=== PATIENT | female | born 1965 | race Caucasian/White ===

== ENCOUNTER 2019-10-19 08:21 | Outpatient (CLI) | payer OTHER, SELFPAY ==
--- NOTE | ~2019-10-19 | MM_ITS ---
EXAMINATION: MM screening [facility] BI w dov HISTORY: Screening mammogram TECHNIQUE: Craniocaudal and mediolateral oblique 3-D tomosynthesis images were obtained and synthetic 2-D images were generated. CAD analysis was submitted and interpreted. COMPARISON: 02/05/2018, 12/31/2015, 12/24/1959 BREAST PARENCHYMAL COMPOSITION: There are scattered areas of fibroglandular density. FINDINGS: RIGHT BREAST: There is no evidence of suspicious mass, calcification, or architectural distortion to suggest malignancy. There has been no significant interval change. LEFT BREAST: There is possible architectural distortion in the middle third of the lower-outer breast 9 cm from the nipple. Stable intramammary lymph nodes are noted in the upper outer quadrant of the b reast. IMPRESSION: 1. Possible architectural distortion of the left breast. 2. Additional mammographic views and possible breast ultrasound are recommended. BI-RADS Category 0: Incomplete: Needs additional imaging evaluation. Reviewed, dictated and finalized at location A. IMPRESSION: 1. Possible architectural distortion of the left breast. 2. Additional mammographic views and possible breast ultrasound are recommended . BI-RADS Category 0: Incomplete: Needs additional imaging evaluation.
== END 2019-10-19 08:22 | disposition home or self-care (01) ==
LOC: ANHIMG 08:29
PROVIDERS: PCP Family Medicine; Visit Provider Physician Assistant
DX: Z12.31 Encounter for screening mammogram for malignant neoplasm of breast (principal); R92.8 Other abnormal and inconclusive findings on diagnostic imaging of breast
CPT/HCPCS: 77063; 77067

== ENCOUNTER 2019-11-14 13:23 | Outpatient (CLI) | payer OTHER, SELFPAY ==
--- NOTE | ~2019-11-14 | MMUS_ITS ---
EXAMINATION: MM diagnostic mammo unilat LT, US breast LT limited HISTORY: Follow-up left breast asymmetry TECHNIQUE: Additional 3-D tomosynthesis images of the left breast were performed and synthetic 2-D im ages were generated. CAD analysis was submitted and interpreted. High resolution left breast ultrasou nd was performed. COMPARISON: 10/19/2019 BREAST PARENCHYMAL COMPOSITION: Breast composed of scattered areas of fibroglandular density FINDINGS: MAMMOGRAPHIC FINDINGS: There are no suspicious masses, calcifications or architectural distortion in the left breast to sugg est malignancy. There are benign appearing intramammary lymph nodes in the upper outer quadrant. ULTRASOUND: Left breast ultrasound: At 1:00 in the subareolar location there is a 3 mm cyst. There are dilated ducts. No suspicious patti s to suggest malignancy. IMPRESSION: 1. No evidence for malignancy in the left breast. Benign findings. 2. Routine yearly screening mammogram and regular clinical breast examination are recommended. BI-RADS Category 2: Benign finding(s). Reviewed, dictated and finalized at location A. IMPRESSION: 1. No evidence for malignancy in the left breast. Benign findings. 2. Routine yearly screening mammogram and regular clinical breast examination a re recommended. BI-RADS Category 2: Benign finding(s).
== END 2019-11-14 13:24 | disposition home or self-care (01) ==
PROVIDERS: PCP Family Medicine; Visit Provider Family Medicine
DX: R92.8 Other abnormal and inconclusive findings on diagnostic imaging of breast (principal)
CPT/HCPCS: 76642; 77065

== ENCOUNTER 2021-04-15 16:27 | Outpatient (CLI) | payer OTHER, SELFPAY ==
--- NOTE | ~2021-04-15 | MM_ITS ---
EXAMINATION: MM screening [facility] BI w dov HISTORY: Screening mammogram TECHNIQUE: Craniocaudal and mediolateral oblique 3-D tomosynthesis images were obtained and synthetic 2-D images were generated. CAD analysis was submitted and interpreted. COMPARISON: 11/14/2019, 10/19/2019, 02/05/2018 BREAST PARENCHYMAL COMPOSITION: There are scattered areas of fibroglandular density. FINDINGS: RIGHT BREAST: There is no evidence of suspicious mass, calcification, or architectural distortion to suggest malignancy. There has been no significant interval change. LEFT BREAST: There is architectural distortion in the middle third of the lower-outer breast 9 cm fro m the nipple. IMPRESSION: 1. Left breast architectural distortion. 2. Additional mammographic views and possible breast ultrasound are recommended. BI-RADS Category 0: Incomplete: Needs additional imaging evaluation. Reviewed, dictated and finalized at location A. OND SANDER IMPRESSION: 1. Left breast architectural distortion. 2. Additional mammographic views and possible breast ultrasound are recommended . BI-RADS Category 0: Incomplete: Needs additional imaging evaluation.
== END 2021-04-15 16:28 | disposition home or self-care (01) ==
LOC: ANHIMG 16:29
PROVIDERS: PCP Family Medicine; Visit Provider Physician Assistant
DX: Z12.31 Encounter for screening mammogram for malignant neoplasm of breast (principal); R92.8 Other abnormal and inconclusive findings on diagnostic imaging of breast
CPT/HCPCS: 77063; 77067

== ENCOUNTER 2021-05-02 11:30 | Outpatient (CLI) | payer OTHER, SELFPAY ==
--- NOTE | ~2021-05-02 | MMUS_ITS ---
EXAMINATION: MM diagnostic k[facility] LT w dov, US breast LT limited HISTORY: Follow-up left breast asymmetry TECHNIQUE: Additional 3-D tomosynthesis images of left were performed and synthetic 2-D images were g enerated. CAD analysis was submitted and interpreted. High resolution Limited left breast ultrasound was performed. COMPARISON: Comparison to multiple prior studies sequentially, with oldest reviewed study dated 12/23. BREAST PARENCHYMAL COMPOSITION: BREAST PARENCHYMAL COMPOSITION: There are scattered areas of fibroglandular density. FINDINGS: MAMMOGRAPHIC FINDINGS: The area of asymmetry/architectural distortion is less apparent with spot compression and mediolatera l views, compatible with superimposed fibroglandular content. No discrete mass or abnormal cluster of calcifications. ULTRASOUND: Limited left breast ultrasound: Normal heterogeneous echotexture without focal solid or cystic mass. IMPRESSION: 1. No evidence for malignancy in the left breast. 2. Routine yearly screening mammogram and regular clinical breast examination are recommended. BI-RADS Category 2: Benign finding(s). Reviewed, dictated and finalized at location A. GN COORDINATOR IMPRESSION: 1. No evidence for malignancy in the left breast. 2. Routine yearly screening mammogram and regular clinical breast examination a re recommended. BI-RADS Category 2: Benign finding(s).
== END 2021-05-02 11:31 | disposition home or self-care (01) ==
LOC: ANHIMG 11:32
PROVIDERS: PCP Family Medicine; Visit Provider Family Medicine
DX: R92.8 Other abnormal and inconclusive findings on diagnostic imaging of breast (principal)
CPT/HCPCS: 76642; 77061; 77065; G0279

== ENCOUNTER 2021-05-12 00:04 | Day surgery (SDC) | payer OTHER, SELFPAY ==
[2021-05-02 13:22] VITALS: BMI 49.3
[2021-05-12 09:14] VITALS: BP 142/77; PULSE 83; RESP 18; TEMP 36; O2SAT 100; BMI 53.3
--- NOTE | 2021-05-12 09:20 | WPDANESEPPF ---
Anes - Initial Pre Proc Eval Procedure: Operation Date: 05/12/21 10:00 Proposed Procedures p Screening Colonoscopy - Robbie Salas MD Date/Time: 05/12/21 09:20 Surgeon: Robbie Salas MD Pre Op Diagnosis: neoplasm screening Patient Data Age: 55 Gender: F Height: 1.68 m Weight: 149.9 kg Last Vital Signs Temp 36.0 C L 05/12/21 09:14 Pulse 83 05/12/21 09:14 Resp 18 05/12/21 09:14 BP 142/77 H 05/12/21 09:14 Pulse Ox 100 05/12/21 09:14 Allergies Allergy/AdvReac Type Severity Reaction Status Date / Time No Known Allergies Allergy Verified 05/12/21 09:13 Home Medications Medication Instructions Recorded Confirmed Type lisinopril 40 mg PO DAILY 05/02/21 05/12/21 History Patient hx anesthesia problems: none Family hx anesthesia problems: none Results Review: All pre-operative results and documents have been reviewed as part of the pre-operative evaluation. [facility] Past Medical History Medical History (Updated 05/12/21 @ 09:20 by Guero Cruz MD) HTN (hypertension) Morbid obesity Surgical History Surgical History (Updated 05/12/21 @ 09:21 by Guero Cruz MD) H/O colonoscopy History of appendectomy History of section Family History Family History (Updated 10/29/15 @ 10:40 by DOCTOR UNKNOWN) Mother Hypertension Family history of heart disease in male family member before age 55 Sibling Family history of malignant neoplasm of testis Other Cerebrovascular accident Social History Social History Smoking status: Never smoker Alcohol intake: current Drinks per week: 1 Substance use: never Substance use type: does not use Living arrangements: with family Spiritual care concerns: No Anes - Eval Final PreProcedure Day of Procedure 05/12/21 09:20 Patient weight: morbidly obese Heart: regular rate and rhythm Lungs: clear to auscultation Airway: Mallampati scale class II Neurological: alert and oriented Last oral intake: >/= 8 hours ASA classification: III Emergent: no Anesthetic plan: proceed Anesthesia type and monitoring: general GIVS and standard monitoring Results Review: All pre-operative results and documents have been reviewed as part of the pre-operative evaluation. Informed Consent: The patient's anesthetic plan and its attendant risks and benefits were discussed with the patient/family/POA. Questions were solicited and answers provided to the satisfaction of the patient/family/POA.
[2021-05-12] MEDS: LACTATED RINGERS 1,000 ML 150 ML IV CONT (09:23)
--- NOTE | 2021-05-12 09:27 | P.CONGI_ITS ---
Assessment and Plan Assessment and plan (1) Encounter for screening colonoscopy: Code(s): Z12.11 - Encounter for screening for malignant neoplasm of colon Status: Acute Assessment and Plan: Patient presents for screening colonoscopy. Appears be at average risk for colon polyps. Further recommendations will be given after endoscopy. (2) Morbid obesity: Code(s): E66.01 - Morbid (severe) obesity due to excess calories Status: Acute Assessment and Plan: Weight loss with dietary restriction increase activity are encouraged. GI Consult Note Consult date/time: 05/12/21 09:27 HPI: Marie Lyon is a 55 year old female Presents for screening colonoscopy. Patient's current weight appetite and bowel habits are normal. Sh e denies abdominal pain. She has had no bleeding. Family history is noncontributory. Review of Systems Review of Systems: All systems reviewed & are unremarkable except as noted in HPI and below PMFSH Past Medical History Medical History (Updated 05/12/21 @ 09:29 by Robbie Salas MD) HTN (hypertension) Morbid obesity Surgical History Surgical History (Updated 05/12/21 @ 09:21 by Guero Cruz MD) H/O colonoscopy History of appendectomy History of section Family History Family History (Updated 10/29/15 @ 10:40 by DOCTOR UNKNOWN) Mother Hypertension Family history of heart disease in male family member before age 55 Sibling Family history of malignant neoplasm of testis Other Cerebrovascular accident Social History Social History Smoking status: Never smoker Alcohol intake: current Drinks per week: 1 Substance use: never Substance use type: does not use Living arrangements: with family Spiritual care concerns: No Meds Home Medications and Allergies Home Medications Medication Instructions Recorded Confirmed Type lisinopril 40 mg PO DAILY 05/02/21 05/12/21 History Allergies Allergy/AdvReac Type Severity Reaction Status Date / Time No Known Allergies Allergy Verified 05/12/21 09:13 Vital Signs Vital Signs - 24 hr 05/12/21 09:14 Temperature 96.8 F L Pulse Rate 83 Respiratory Rate 18 Blood Pressure 142/77 H Pulse Oximetry 100 Exam Narrative: Physical exam reveals patient to be alert. Vital signs stable. HEENT exam is unremarkable. Patient is anicteric. Lungs are clear to auscultation and percussion. Heart is without murmur or extra sounds. Abdominal exam Is obese.bowel sounds are present soft nontender with no organomegaly. Digital external rectal exam is normal.
[2021-05-12 10:12] VITALS: BP 97/53; PULSE 76; RESP 23; O2SAT 100
[2021-05-12 10:22] VITALS: BP 120/56; PULSE 77; RESP 23; O2SAT 100
[2021-05-12 10:32] VITALS: BP 133/64; PULSE 71; RESP 17; O2SAT 100
== END 2021-05-12 10:43 | disposition home or self-care (01) ==
PROVIDERS: PCP Family Medicine; Visit Provider Internal Medicine Gastroenterology
PROC: 0DJD8ZZ Inspection of Lower Intestinal Tract, Via Natural or Artificial Opening Endoscopic (ICD-10-PCS; CPT 45378; principal; 2021-05-12 10:00)
DX: Z12.11 Encounter for screening for malignant neoplasm of colon (principal); K64.8 Other hemorrhoids; I10 Essential (primary) hypertension; E66.01 Morbid (severe) obesity due to excess calories; Z68.43 Body mass index [BMI] 50.0-59.9, adult
CPT/HCPCS: 45378; J2001; J2704; J7120

== ENCOUNTER 2022-03-30 16:04 | Inpatient (IN) | payer OTHER, SELFPAY ==
--- NOTE | ~2022-03-30 | US_ITS ---
EXAMINATION: US venous doppler [facility] DATE: 03/31/2022 11:53 INDICATION: Lower limb swelling and pain TECHNIQUE: Grayscale ultrasound images without and with compression and Doppler ultrasound images of the bilateral lower extremity veins were obtained. COMPARISON: None. FINDINGS: The visualized portions of right common femoral vein, profunda (deep) femoral vein, femoral vein, pop liteal vein, posterior tibial veins, peroneal veins and greater saphenous vein outflow are patent. The visualized portions of left common femoral vein, profunda femoral vein, femoral vein, popliteal v ein, posterior tibial veins, peroneal veins and greater saphenous vein outflow are patent. IMPRESSION: 1. No deep venous thrombosis in either lower limb. Reviewed, dictated and finalized at location L. ICAL PROJECT LEADER
--- NOTE | ~2022-03-30 | XR_ITS ---
Clinical Indication: Arrhythmia AP and lateral views of the chest: Comparison: None Findings: The lungs are clear, without evidence of focal consolidation or pleural effusion. Cardiome diastinal silhouette is within normal limits. Bones and soft tissues are unremarkable. Impression: Normal chest. Reviewed, dictated and finalized at [facility]. RIBUTION CENTER ASSISTANT Impression: Normal chest.
--- NOTE | 2022-03-30 16:08 | ECG_ITS ---
Measurements Intervals [place] Rate: 135 P: MS: 0 QRS: -25 QRSD: 94 T: 9 QT: 311 QTc: 466 Interpretive Statements ATRIAL FIBRILLATION WITH RAPID VENTRICULAR RESPONSE MODERATE VOLTAGE CRITERIA FOR LVH, CONSIDER NORMAL VARIANT [MEETS CRITERIA IN ONE OF: R(aVL), S(V1), R(V5), R(V5/V6)+S(V1)] POOR R-WAVE PROGRESSION INFERIOR MYOCARDIAL INFARCTION , PROBABLY OLD [40+ ms Q WAVE AND/OR ST/T ABNORMALITY IN II/aVF] NO PREVIOUS ECG AVAILABLE FOR COMPARISON Electronically Signed On 03-30-2022 17:21:59 DOUBLE CUT SAWYER by Andrea Love M.D.
[2022-03-30 16:09] VITALS: BP 135/94; PULSE 135; RESP 16; TEMP 36.4; O2SAT 100
[2022-03-30 16:33] LABS: Basophils Absolute Auto 0.1 K/mm3 (0.0-0.1); Basophils Percent Auto 0.6 % (0.2-1.2); Eosinophils Absolute Auto 0.1 K/mm3 (0-0.3); Eosinophils Percent Auto 0.6 % (0-4.4); Hematocrit 46.3 % (37.0-47.0); Hemoglobin 14.7 g/dL (12.0-15.0); Immature Granulocyte Absolute 0.04 K/mm3 (0.00-0.031); Immature Granulocyte Percent A 0.3 % (0-0.5); Lymphocytes Absolute Auto 2.99 K/mm3 (0.9-3.2); Lymphocytes Percent Auto 23.5 % (18.3-44.2); Mean Corpuscular HGB Conc 31.7 g/dl (32-36); Mean Corpuscular Hemoglobin 29.4 pg (26-34); Mean Corpuscular Volume 92.6 fl (80-100); Mean Platelet Volume 10.6 fl (7.4-10.4); Monocytes Absolute Auto 0.8 K/mm3 (0.1-0.6); Monocytes Percent Auto 6.6 % (2.6-8.5); Neutrophils Absolute Auto 8.7 K/mm3 (1.3-6.7); Neutrophils Percent Auto 68.4 % (45.5-73.1); Platelet Count Result 396 k/mm3 (150-375); Red Cell Distribution Width 13.8 % (11.5-14.5); White Blood Count 12.7 K/mm3 (4.5-10.0)
[2022-03-30 16:47] LABS: Alanine Aminotransferase 17 U/L (6-35); Albumin Level 4.8 g/dL (3.5-5.1); Alkaline Phosphatase 81 U/L (38-126); Anion Gap 10 mmol/L (8-16); Aspartate Amino Transferase 23 U/L (14-36); Bilirubin,Total 0.6 mg/dL (0.2-1.3); Blood Urea Nitrogen 22 mg/dL (7-17); Calcium 8.9 mg/dL (8.4-10.2); Carbon Dioxide 26 mmol/L (22-30); Chloride 101 mmol/L (98-107); Estimated CRCL calculation 103 ml/min; Estimated Glomerular Filt Rate > 60; Glucose 108 mg/dL (65-110); Potassium 4.1 mmol/L (3.4-5.0); Sodium 137 mmol/L (137-145)
--- NOTE | 2022-03-30 17:22 | ED.ARRPALP ---
HPI - Arrhythmia/Palpitations General Chief Complaint: Arrhythmia/Palpitations Stated Complaint: rapid heart rate Time Seen by Provider: 03/30/22 16:32 Source: patient, RN notes reviewed and old records reviewed Mode of arrival: ambulatory Limitations: no limitations History of Present Illness HPI narrative: This is a 56 year old female with history of hypertension who presents for evaluation of atrial fibrillation. Patient states she had URI symptoms in February and she had covid vaccination around [facility]. She takes her blood pressure daily and she has noticed that her monitor reports that she may have afib for 2 weeks. She was seen by her PCP today for evaluation of this monitor finding, and she was found to have atrial fibrillation with RVR. She was sent to ER for evaluation . She denies associated chest pain, sob, dizziness, weakness or leg swelling. She states she feels fine and she does not have palpitations. She denies history of an arrhythmia. Related Data Home Medications Medication Instructions Recorded Confirmed lisinopril 40 mg tablet 40 mg PO DAILY 05/02/21 03/30/22 aspirin 81 mg tablet 81 mg PO DAILY 03/30/22 03/30/22 Allergies Allergy/AdvReac Type Severity Reaction Status Date / Time No Known Allergies Allergy Verified 05/12/21 09:13 Review of Systems Constitutional: Constitutional: Denies weakness Cardiovascular: Cardiovascular: Denies syncope, Denies irregular heart rhythm, Denies leg edema and Denies dyspnea Respiratory: Respiratory: Denies chest congestion, Denies hemoptysis, Denies excessive phlegm production and Denies dyspnea Gastrointestinal: Gastrointestinal: Denies abdominal pain, Denies hematochezia, Denies diarrhea and Denies vomiting Genitourinary: Genitourinary: Denies hematuria and Denies dysuria Musculoskeletal: Musculoskeletal: Denies joint swelling, Denies loss of height and Denies muscle weakness Neurologic: Denies syncope, Denies focal weakness and Denies weakness PMFSH Past Medical History Medical History HTN (hypertension) Morbid obesity Surgical History Surgical History H/O colonoscopy History of appendectomy History of section Family History Family History (Updated 03/30/22 @ 21:42 by Amalia Linda RN) Mother Family history of heart disease in male family member before age 55 Hypertension History of open heart surgery Sibling Family history of malignant neoplasm of testis Lung cancer Grandparent Acute myocardial infarction Diabetes mellitus Other Cerebrovascular accident Diabetes mellitus Social History Social History Smoking status: Never smoker Second hand tobacco smoke exposure: No Alcohol intake: current Drinks per week: 1 Substance use: never Substance use type: does not use Last use: less than one drink a week Lack of Transportation: No Lack of Food: Never True Current Housing: I Have Housing Concerned About Future Housing: No Difficulty Paying Gas/Electric Bills: No Difficulty Paying for Meds: No Currently Unemployed: No Education: Master's Degree or Higher Difficulty w/ Childcare or Family Care: No Spiritual care concerns: No Exam Const: General: no acute distress and alert Nutritional Appearance: well nourished and obese Orientation/consciousness: patient oriented x3 Limitations: no limitations HENMT: Head: normal to inspection Face and sinus: normal facial exam Eyes: EOM: EOMs intact bilaterally Chest: Chest palpation & inspection: normal inspection of the chest Resp: Effort & Inspection: normal respiratory effort Auscultation: clear to auscultation bilaterally Cardio: Rate: tachycardic Rhythm: abnormal rhythm irregularly irregular Heart sounds: no murmurs GI: GI Palp: Yes Soft to palpation, No Tend
[2022-03-30 17:39] LABS: Magnesium 2.1 mg/dL (1.6-2.3)
[2022-03-30] MEDS: dilTIAZem HCl INJ 25 MG/5 ML VIAL 10 MG IV PUSH (17:42)
[2022-03-30] MEDS: ENOXAPARIN 100 MG/ML SYRINGE 150 MG SUB-Q (17:42)
[2022-03-30 17:44] LABS: NT Pro B Type Natriuretic Pept 598 pg/mL (5-100)
[2022-03-30 17:47] LABS: Prothrombin Time 13.1 Seconds (11.1-14.7)
[2022-03-30 17:48] LABS: Partial Thromboplastin Time 26.5 SECONDS (22.3-36.8)
[2022-03-30 17:49] LABS: Troponin I < 0.012 ng/mL (0.000-0.034)
[2022-03-30 18:08] VITALS: BP 109/94; PULSE 114
[2022-03-30] MEDS: dilTIAZem 100 MG/100 ML 100 MG/100 ML BAG 10 MG IV CONT (18:08)
--- NOTE | 2022-03-30 18:30 | PM.IMHP ---
H&P: HPI History of Present Illness Date/Time: 03/30/22 18:30 Chief Complaint: High heart rate. Narrative: This is a very pleasant 56-year-old female with hypertension who presented to the emergency department from her doctor's office for evaluation after she was found to have a high heart rate. She had an upper respiratory infection around Thanksgiving time and tested negative for COVID. She had a COVID booster on 03/18/2022 and within a day or so thereafter she started to notice that her heart rate was running between the 90s to 130s on a hand-held EKG reader that she has at home which she checks daily. Prior to that she had not noticed any issues with her heart rate. She made an appointment to see her doctor about that today and she was found to be in atrial fibrillation with rapid ventricular response and she was sent to the emergency department where she has been started on a diltiazem drip with some improvement in her rate. She has absolutely no symptoms and specifically denies syncope, near syncope, dizziness, chest pain, palpitations, sensations of racing heart, fatigue, and shortness of breath. She has chronic lower extremity edema at the end of the day which seems to improve by morning time. She has no known history of thyroid disease or sleep apnea and denies symptoms of such. She has no known history of cardiac disease. She denies significant caffeine and alcohol intake. Review of Systems Review of Systems: Twelve systems were reviewed and are negative except for as per HPI. [facility] Past Medical History Medical History (Updated 03/30/22 @ 23:38 by Araceli Ren PA-C) Hypertension Morbid obesity Surgical History Surgical History (Updated 03/30/22 @ 23:35 by Araceli Ren PA-C) History of appendectomy History of section History of colonoscopy with polypectomy Family History Family History Mother Family history of heart disease in male family member before age 55 Hypertension History of open heart surgery Sibling Family history of malignant neoplasm of testis Lung cancer Grandparent Acute myocardial infarction Diabetes mellitus Other Cerebrovascular accident Diabetes mellitus Social History Social History (Updated 03/30/22 @ 23:36 by Araceli Ren PA-C) Social History: Surrogate medical decision maker: Kelechi Fourqurean, spouse. Code status: Full code. Smoking status: Never smoker Second hand tobacco smoke exposure: No Alcohol intake: current Drinks per week: 1 Substance use: never Substance use type: does not use Last use: less than one drink a week Lack of Transportation: No Lack of Food: Never True Current Housing: I Have Housing Concerned About Future Housing: No Difficulty Paying Gas/Electric Bills: No Difficulty Paying for Meds: No Currently Unemployed: No Education: Master's Degree or Higher Difficulty w/ Childcare or Family Care: No Additional living arrangements comments: Lives in [place] with spouse and 1 son. They have 6 children. 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 Spiritual care concerns: No Meds Home Medications and Allergies Home Medications Medication Instructions Recorded Confirmed Type lisinopril 40 mg tablet 40 mg PO DAILY 05/02/21 03/30/22 History aspirin 81 mg tablet 81 mg PO DAILY 03/30/22 03/30/22 History Allergies Allergy/AdvReac Type Severity Reaction Status Date / Time No Known Allergies Allergy Verified 05/12/21 09:13 Vital Signs Vital Signs - 24 hr 03/30/22 16:09 03/30/22 18:08 03/30/22 21:10 Temperature 97.6 F 97.3 F L Pulse Rate 135 H 114 H 78 Respiratory Rate 16 22 H Blood Pressure 135/94 H 109/94 H 127/76 Pulse Oximetry 100 98 03/30/22 23:23 Temperature 97.6 F Pulse Rate 84 Respiratory Rate 22 H Blood Pressure 110/72 Pulse Oximetry 98 Exam Const:
[2022-03-30 18:58] LABS: Influenza A QL RT-PCR Negative (Negative); Influenza B QL RT-PCR Negative (Negative); SARS-CoV-2 RNA PCR Negative
[2022-03-30 21:10] VITALS: BP 127/76; PULSE 78; RESP 22; TEMP 36.3; O2SAT 98
[2022-03-30 22:00] VITALS: PULSE 114; O2SAT 98
[2022-03-30 22:03] VITALS: BMI 46.7
--- NOTE | 2022-03-30 22:04 | ADMGEN ---
This patient, Marie Lyon, was admitted to IMU Room 209-01 at 2110. Patient/family oriented to hospital policies and general routines including ID bracelet, bed and alarms, visiting hours, pain management, procedures, bathroom and other care routines, personal items, smoking policy, room service/diet, and visiting hours. Information on how to activate the Rapid Response Team has been discussed. Patient/Family are encouraged to report perceived risks to care and to ask questions if they do not understand what they are told or what they should do.
[2022-03-30 23:23] VITALS: BP 110/72; PULSE 84; RESP 22; TEMP 36.4; O2SAT 98
[2022-03-31] VITALS (19 sets, daily range): BP systolic 105–151; BP diastolic 63–87; PULSE 62–128; RESP 16–20; TEMP 36.2–36.9; O2SAT 98–100
[2022-03-31] MEDS: dilTIAZem 100 MG/100 ML 100 MG/100 ML BAG 10 MG IV CONT ×3 (03:35→22:56)
[2022-03-31 05:14] LABS: Anion Gap 8 mmol/L (8-16); Blood Urea Nitrogen 21 mg/dL (7-17); Calcium 8.7 mg/dL (8.4-10.2); Carbon Dioxide 27 mmol/L (22-30); Chloride 106 mmol/L (98-107); Estimated CRCL calculation 93 ml/min; Estimated Glomerular Filt Rate > 60; Glucose 98 mg/dL (65-110); Magnesium 2.3 mg/dL (1.6-2.3); Sodium 141 mmol/L (137-145)
--- NOTE | 2022-03-31 06:00 | ECHO_ITS ---
Patient Info Name: Marie Lyon Age: 56 years : 1965 Gender: Female Ht: 66 in Wt: 289 lbs BSA: 2.54 m2 HR: 106 bpm BP: 108 / 73 mmHg Heart Rhythm: Atrial Fibrillation Exam Date: 03/31/2022 9:02 AM Exam Location: [facility] Pulmonary Patient Status: Outpatient Admit Date: 03/30/2022 Staff Ordering Physician: Phyllis Bailey MD Environmental Health Specialist: Cristo Mccarthy, NAMCS, RT Attending Provider: Andrea Morales MD Referring Physician: Leo TAI; Exam Type: CA echo dop color flow w con Study Info Indications I48.1 - Persistent atrial fibrillation Complete two-dimensional, color flow and Doppler transthoracic echocardiogram is performed with contrast to opacify the left ventricle and to improve the deliniation of the left ventricle endocardial borders. Strain analysis performed. Summary 1. Left ventricular chamber dimension is normal. 2. Left ventricular systolic function is normal, estimated at 65-70%. 3. There is mildly increased left ventricular wall thickness. 4. The left ventricular diastolic function is indeterminate. 5. Global longitudinal strain is abnormal at -13 %. 6. Left atrial chamber dimension is mildly enlarged. 7. There is mild mitral valve regurgitation. 8. There is mild tricuspid valve regurgitation. 9. Complete two-dimensional, color flow and Doppler transthoracic echocardiogram is performed with contrast to opacify the left ventricle and to improve the deliniation of the left ventricle endocardial borders. 10. Strain analysis performed. Left Ventricle Left ventricular chamber dimension is normal. Left ventricular systolic function is normal, estimated at 65-70%. There is mildly increased left ventricular wall thickness. The left ventricular diastolic function is indeterminate. Global longitudinal strain is abnormal at -13 %. Right Ventricle Right ventricular chamber dimension is normal. Right ventricular systolic function is normal. Left Atria Left atrial chamber dimension is mildly enlarged. Right Atria Right atrial chamber dimension is normal. Atrial Septum Intact interatrial septum visualized by color flow imaging. Aortic Valve The aortic valve is trileaflet. There is mild aortic valve sclerosis. There is no aortic valve stenosis. There is trace aortic valve regurgitation. Pulmonic Valve The pulmonic valve is normal. There is no pulmonic valve stenosis. There is trace pulmonic regurgitation. Mitral Valve The mitral valve has normal leaflets. There is no mitral valve stenosis. There is mild mitral valve regurgitation. Tricuspid Valve The tricuspid valve leaflets are normal. There is no significant tricuspid valve stenosis. There is mild tricuspid valve regurgitation. Pericardium/Pleural The pericardium appears normal. There is trivial pericardial effusion. Inferior Vena Cava Normal inferior vena cava with >50% collapse upon inspiration consistent with normal right atrial pressure, 5 mmHg. Aorta The aortic root size at the sinus of Valsalva is normal. The prox ascending aorta size is normal. Left Ventricular Outflow Tract Name Value Normal LVOT 2D LVOT Diameter 2.00 cm LVOT Doppler
[2022-03-31] MEDS: ENOXAPARIN 80 MG/0.8 ML SYRINGE 130 MG SUB-Q ×2 (06:33→17:00)
[2022-03-31] MEDS: ASPIRIN 81 MG ENTERIC TABLET PO (08:15)
[2022-03-31] MEDS: lisinopriL 20 MG TABLET 40 MG PO (08:15)
[2022-03-31] MEDS: PERFLUTREN LIPID MICROSPHERES 1.5 ML VIAL DILUTED TO 10 ML TOTAL VOLUME IV PUSH (09:30)
--- NOTE | 2022-03-31 11:43 | PM.IMPN ---
Progress Note: A&P Assessment and Plan (1) New onset atrial fibrillation: Code(s): I48.91 - Unspecified atrial fibrillation Status: Acute Assessment and Plan: She is asymptomatic and only noticed that her heart rate was beating rapidly and irregularly on a hand-held EKG machine that she has at home and this was only within the last week and a half or so. No obvious murmurs noted on exam today. She denies significant alcohol and caffeine use. No known thyroid disease. Denies concerns for sleep apnea. Check echocardiogram, TSH Continue Cardizem. Lovenox (2) Atrial fibrillation with rapid ventricular response: Code(s): I48.91 - Unspecified atrial fibrillation Status: Acute Assessment and Plan: Currently on a diltiazem drip with improvement in rate. She has been started on Lovenox 1 milligram/kilogram b.i.d.. Oral anticoagulation is recommended given CHADS2 Vasc score of at least 2. Will need pre approval/pricing from insurance. (3) Hypertension: Code(s): I10 - Essential (primary) hypertension Status: Acute Assessment and Plan: Blood pressures were reviewed and they are stable. Continue lisinopril and monitor closely. Subjective Date/time seen: 03/31/22 11:43 rates better controlled. No chest pain. Exam Const: Other: Well-developed, nontoxic-appearing female sitting up in bed. Weight: 131.2 kilograms. BMI: 46.7. HENMT: Other: Normocephalic, atraumatic. Nares pain bilaterally. Oral mucosa moist. Eyes: Other: Pupils are reactive. Extraocular motions intact. Sclerae anicteric. Neck: Other: Supple. Exam limited due to neck circumference. No obvious thyromegaly or JVD. Resp: Other: Respirations are nonlabored and lungs are clear to auscultation. Cardio: Other: Irregularly irregular rate and rhythm. No obvious murmur. GI: Other: Abdomen is soft, obese, nontender, and nondistended with positive bowel sounds. Skin: Other: Warm and dry. Neuro: Other: Alert. Cranial nerves 2-12 are grossly intact. No gross focal deficits to casual conversation. Extrem: Other: No cyanosis or clubbing. 1+ brenda ankle edema bilaterally. Peripheral pulses intact. Negative Ovi sign bilaterally. Psych: Other: Pleasant and cooperative. Appropriate mood and affect. Judgment insight intact. Objective Data Vital Signs Vital Signs: Vital Signs - 24 hr 03/30/22 16:09 03/30/22 18:08 03/30/22 21:10 Temperature 97.6 F 97.3 F L Pulse Rate 135 H 114 H 78 Respiratory Rate 16 22 H Blood Pressure 135/94 H 109/94 H 127/76 Pulse Oximetry 100 98 Oxygen Delivery 03/30/22 23:23 03/30/22 22:00 03/30/22 22:00 Temperature 97.6 F Pulse Rate 84 114 H Respiratory Rate 22 H Blood Pressure 110/72 Pulse Oximetry 98 98 Oxygen Delivery Room Air 03/30/22 22:00 03/31/22 00:00 03/31/22 00:00 Temperature Pulse Rate 114 H 75 Respiratory Rate Blood Pressure Pulse Oximetry 98 Oxygen Delivery Room Air 03/31/22 00:05 03/31/22 02:00 03/31/22 03:35 Temperature Pulse Rate 75 83 90 Respiratory Rate Blood Pressure Pulse Oximetry Oxygen Delivery 03/31/22 04:00 03/31/22 04:00 03/31/22 04:00 Temperature 97.1 F L Pulse Rate 84 83 Respiratory Rate 20 Blood Pressure 108/73 Pulse Oximetry 100 100 Oxygen Delivery Room Air 03/31/22 06:00 03/31/22 08:00 03/31/22 08:00 Temperature 97.7 F Pulse Rate 88 86 Respiratory Rate 16 Blood Pressure 151/87 H Pulse Oximetry 98 100 Oxygen Delivery Room Air 03/31/22 08:00 Temperature Pulse Rate 86 Respiratory Rate Blood Pressure Pulse Oximetry Oxygen Delivery Intake/Output Intake/Output: Intake & Output 03/28/22 03/29/22 03/30/22 03/31/22 23:59 23:59 23:59 23:59 Intake Total 340 Output Total 550 Balance -210 Meds/Results Medications: Active Medications Generic Name Dose Route Start Last Admin Trade N
[2022-03-31 14:16] LABS: Free T4 Free Thyroxine Reflex 1.16 ng/dL (0.78-2.19)
--- NOTE | 2022-03-31 14:33 | PM.CNCAR ---
Assessment and Plan Assessment and plan (1) Atrial fibrillation with rapid ventricular response: Code(s): I48.91 - Unspecified atrial fibrillation Status: Acute (2) New onset atrial fibrillation: Code(s): I48.91 - Unspecified atrial fibrillation Status: Acute Plan Will pursue rate control strategy at this time. Starting Metoprolol and wean off Dilt drip if possible. Increase dose of Metoprolol as tolerated. Obtain TTE today. [id number] of 2. On TLOV, would transition to NOAC prior to discharge. Her TSH is elevated but T4 is normal. Recommend a sleep study to look for CHIDI. History of Present Illness History of Present Illness Consult date/time: 03/31/22 14:33 Requesting physician: Phyllis Bailey MD Consult reason: atrial fibrillation Reason For Visit: new onset afib with RVR Narrative: We are being consulted for atrial fibrillation. This is a 56-year-old female with a history of morbid obesity and hypertension who was found to have a high heart rate at her doctor's office and sent to the ER for further evaluation. Patient has been noticing high heart rates on her hand-held EKG reader at home. Started on Dilt drip in the ER with improvement in HR control. No cardiac symptoms. Patient is feeling comfortable this morning. Denies chest pain, palpitations, shortness of breath. Review of Systems Review of Systems: 12-point ROS obtained. Negative, unless stated in HPI. [facility] Past Medical History Medical History Hypertension Morbid obesity Surgical History Surgical History History of appendectomy History of section History of colonoscopy with polypectomy Family History Family History Mother Family history of heart disease in male family member before age 55 Hypertension History of open heart surgery Sibling Family history of malignant neoplasm of testis Lung cancer Grandparent Acute myocardial infarction Diabetes mellitus Other Cerebrovascular accident Diabetes mellitus Social History Social History Social History: Surrogate medical decision maker: Kelechi Lyon, spouse. Code status: Full code. Smoking status: Never smoker Second hand tobacco smoke exposure: No Alcohol intake: current Drinks per week: 1 Substance use: never Substance use type: does not use Last use: less than one drink a week Lack of Transportation: No Lack of Food: Never True Current Housing: I Have Housing Concerned About Future Housing: No Difficulty Paying Gas/Electric Bills: No Difficulty Paying for Meds: No Currently Unemployed: No Education: Master's Degree or Higher Difficulty w/ Childcare or Family Care: No Additional living arrangements comments: Lives in [place] with spouse and 1 son. They have 6 children. 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 Spiritual care concerns: No Meds Home Medications and Allergies Home Medications Medication Instructions Recorded Confirmed Type lisinopril 40 mg tablet 40 mg PO DAILY 05/02/21 03/30/22 History aspirin 81 mg tablet 81 mg PO DAILY 03/30/22 03/30/22 History Allergies Allergy/AdvReac Type Severity Reaction Status Date / Time No Known Allergies Allergy Verified 05/12/21 09:13 Vital Signs Vital Signs - 24 hr 03/30/22 16:09 03/30/22 18:08 03/30/22 21:10 Temperature 36.4 C 36.3 C L Pulse Rate 135 H 114 H 78 Respiratory Rate 16 22 H Blood Pressure 135/94 H 109/94 H 127/76 Pulse Oximetry 100 98 Oxygen Delivery 03/30/22 23:23 03/30/22 22:00 03/30/22 22:00 Temperature 36.4 C Pulse Rate 84 114 H Respiratory Rate 22 H Blood Pressure 110/72 Pulse Oximetry 98 98 Oxygen Delivery Room Air 03/30/22 22:00 03/31/22
[2022-03-31 16:53] LABS: Total Triiodothyronine (T3) 1.18 NG/ML (0.97-1.69)
[2022-03-31] MEDS: METOPROLOL TARTRATE 50 MG TAB PO ×2 (17:00→20:54)
[2022-04-01] VITALS (10 sets, daily range): BP systolic 102–117; BP diastolic 64–79; PULSE 60–78; RESP 20; TEMP 36.2–36.8; O2SAT 96–100
[2022-04-01] MEDS: ENOXAPARIN 80 MG/0.8 ML SYRINGE 130 MG SUB-Q (06:16)
[2022-04-01] MEDS: ASPIRIN 81 MG ENTERIC TABLET PO (10:32)
[2022-04-01] MEDS: lisinopriL 20 MG TABLET 40 MG PO (10:32)
[2022-04-01] MEDS: METOPROLOL TARTRATE 50 MG TAB PO (10:32)
--- NOTE | 2022-04-01 16:28 | PM.PNCARD ---
Progress Note: A&P Assessment and Plan (1) Atrial fibrillation with rapid ventricular response: Code(s): I48.91 - Unspecified atrial fibrillation Status: Acute Plan Echo shows LVEF 65-70%. No significant valvular disease. Stopped Dilt drip this AM. Continue with Metoprolol. Increase as needed for additional rate control. [id number] of 2. On TLOV, would transition to NOAC prior to discharge. Her TSH is elevated but T4 is normal. Recommend a sleep study to look for CHIDI. If patient is rate-controlled on oral meds, then she can be discharged. Subjective Date/time seen: 04/01/22 16:28 Interval history: Reason for visit: Atrial fibrillation We are being consulted for atrial fibrillation. This is a 56-year-old female with a history of morbid obesity and hypertension who was found to have a high heart rate at her doctor's office and sent to the ER for further evaluation. Patient has been noticing high heart rates on her hand-held EKG reader at home. Started on Dilt drip in the ER with improvement in HR control. No cardiac symptoms. Patient is feeling comfortable this morning. Denies chest pain, palpitations, shortness of breath. Date of service 04/01/2022: Rate controlled now. On Dilt drip this morning. Patient feeling well without any cardiac symptoms. Review of Systems Review of Systems: 8-point ROS obtained. Negative, unless stated in HPI. Exam Const: General: comfortable and no acute distress Other: Morbidly obese female HENMT: Mouth: Yes moist mucous membranes Eyes: General: appearance normal, both eyes and all related structures Sclera: sclerae normal Neck: Neck: supple Resp: Effort & Inspection: normal respiratory effort Auscultation: clear to auscultation bilaterally Cardio: Rhythm: abnormal rhythm irregularly irregular Heart sounds: no murmurs GI: GI Palp: Yes Soft to palpation and No Tenderness to palpation present (GI) Skin: General skin exam: normal color Neuro: Speech: normal speech Extrem: General: normal to inspection Psych: Mental Status: mental status grossly normal Affect: normal affect Objective Data Vital Signs Vital Signs: Vital Signs - 24 hr 03/31/22 17:00 03/31/22 18:00 03/31/22 20:00 Temperature 36.7 C Pulse Rate 90 75 76 Respiratory Rate 20 Blood Pressure 105/76 Pulse Oximetry 100 Oxygen Delivery 03/31/22 20:54 03/31/22 22:56 04/01/22 00:00 Temperature 36.4 C Pulse Rate 76 64 78 Respiratory Rate 20 Blood Pressure 105/73 Pulse Oximetry 100 Oxygen Delivery 03/31/22 20:00 03/31/22 20:00 03/31/22 22:00 Temperature Pulse Rate 64 64 62 Respiratory Rate 20 Blood Pressure Pulse Oximetry 100 Oxygen Delivery Room Air 04/01/22 00:00 04/01/22 00:00 04/01/22 02:00 Temperature Pulse Rate 60 60 60 Respiratory Rate 20 Blood Pressure Pulse Oximetry 100 Oxygen Delivery Room Air 04/01/22 04:00 04/01/22 04:00 04/01/22 04:00 Temperature 36.2 C L Pulse Rate 62 62 66 Respiratory Rate 20 20 Blood Pressure 112/74 Pulse Oximetry 100 99 Oxygen Delivery Room Air 04/01/22 06:00 04/01/22 08:00 04/01/22 10:32 Temperature 36.7 C Pulse Rate 60 73 67 Respiratory Rate 20 Blood Pressure 110/77 Pulse Oximetry 98 Oxygen Delivery 04/01/22 08:00 04/01/22 08:00 04/01/22 10:00 Temperature Pulse Rate 63 68 Respiratory Rate Blood Pressure Pulse Oximetry 100 Oxygen Delivery Room Air 04/01/22 12:00 04/01/22 12:00 04/01/22 12:00 Temperature 36.3 C L Pulse Rate 67 63 Respiratory Rate 20 Blood Pressure 102/64 Pulse Oximetry 100 96 Oxygen Delivery Room Air 04/01/22 14:00 Temperature Pulse Rate 72 Respiratory Rate Blood Pressure Pulse Oximetry Oxygen Delivery Intake/Output Intake/Output: Intake & Output 03/29/22 03/30/22 03/31/22 04/01/22 23:59 23:59 23:59 23:59 Intake Total 1020 720 Output Total 550 900 Balance 470 -1
--- NOTE | 2022-04-01 17:23 | PM.DS ---
DS: Admitting Diagnosis Discharge Date 04/01/22 Admitting Diagnosis Elevated heart rate DS: Discharge Diagnosis Discharge Diagnosis (1) New onset atrial fibrillation: Code(s): I48.91 - Unspecified atrial fibrillation Status: Acute (2) Hypertension: Code(s): I10 - Essential (primary) hypertension Status: Acute (3) Morbid obesity: Code(s): E66.01 - Morbid (severe) obesity due to excess calories Status: Acute DS: Summary Hospital Course Reason for hospitalization: 56yo female with HTN here for elevated heart rate. Please see H&P for details Hospital Course: Admission, EKG showed AFib with RVR rate of 135 and voltage criteria for LVH. She also may have had an old inferior AL. No prior EKG to compare. Chest x-ray was clear. Lower extremity venous Doppler was negative for DVT. Echocardiogram showed EF of 65-70% with indeterminate diastolic function. She was started on diltiazem drip. Heart rate became better controlled. She was transition to metoprolol. [id number] 2. She was started on Lovenox and this was changed to Eliquis. She has been up ambulating in the halls. Troponin is negative. TSH was mildly elevated but free T4 was normal. BNP was 598. COVID and influenza were negative. ApneaLink was mildly positive with AHI of 9.4 and RI of 11.8. She overall did well and was able be discharged home on 04/01/2022. Status at Discharge Cognitive/behavioral status at discharge: Stable Time Spent with Patient Time attestation: Total time spent providing and/or coordinating discharge services: 35 minutes Time spent: Greater than 30 minutes Exam Narrative: AF 98.3 117/79 76 20 98% ra Gen - NARD Chest - CTA bilaterally, nml RR CV - RRR S1/S2 Abd - Soft, NT/ND, Positive BS Ext - No pedal edema Psych - Nml mood and affect Skin - Warm and dry Discharge Plan Discharge Attending physician on discharge: Jermaine Johnson Consulting providers: Anshu Polanco Discharging Clinician: Jermaine Johnson Anticipated Discharge Date/Time: 04/01/22 17:37 Patient Disposition: Home, Self-Care Activity: as tolerated Diet: heart healthy Discharge Instructions: Take precautions to avoid falls. Rise slowly from a lying or sitting position. Pause before standing or walking. Check blood pressure 1 to 2 times a day. Record and bring into your doctor for review. Call your doctor if your blood pressure is greater than 180/110 or less than 95/45. Contact your doctor or call 911 and come to the Emergency Room if you have any type of trauma, lightheadedness with standing or other worrisome symptoms. Avoid NSAIDs (ibuprofen, naproxen, Aleve). Tylenol is safe to take. Follow-up with your primary care provider in 1-2 weeks. Please call for appointment. -- Please ask your doctor about setting up an outpatient sleep study as we spoke about. Follow-up with Cardiology in 4-6 weeks. Please call for an appointment. Thank you for using [facility] for your health care needs. Patient Instructions: Antibiotic Form, A-fib (Atrial Fibrillation) (DC) Stand Alone Forms: General Discharge Information Follow-up/Referrals: Anshu Polanco MD [Physician] - Call for Appointment Oswaldo Raygoza MD [Primary Care Provider] - Call for Appointment (Please set patient up for outpatient sleep study) Discharge Medications: New metoprolol tartrate 50 mg Tablet 50 mg PO Q12HR Qty: 60 2RF Eliquis 5 mg Tablet 5 mg PO Q12HR Qty: 60 2RF Continued lisinopril 40 mg Tablet 40 mg PO DAILY aspirin 81 mg Tablet 81 mg PO DAILY Date of admission: 03/31/22 14:21 Primary Care Provider: Oswaldo Raygoza Admitting Provider: Andrea Morales Attending physician on admission: Andrea Morales Condition: Stable
== END 2022-04-01 19:10 | disposition home or self-care (01) | DRG 309 ==
LOC: ANHED 19:48 → ANHIMU 20:15
PROVIDERS: Emergency Medicine; Physician Assistant; Admitting Provider Chiropractor; Emergency Provider General Practice; PCP Family Medicine; Visit Provider Internal Medicine
DX: I48.91 Unspecified atrial fibrillation (principal); Z68.42 Body mass index [BMI] 45.0-49.9, adult; I10 Essential (primary) hypertension; I25.2 Old myocardial infarction; E66.01 Morbid (severe) obesity due to excess calories; Z20.822 Contact with and (suspected) exposure to COVID-19; Z90.49 Acquired absence of other specified parts of digestive tract; Z79.82 Long term (current) use of aspirin
CPT/HCPCS: 36415; 71046; 80048; 80053; 83735; 83880; 84439; 84443; 84480; 84484; 85025; 85610; 85730; 87636; 93005; 93970; 96365; 96366; 96372; 96375; 99285; A9270; C8929; G0378; J1650; Q9957

== ENCOUNTER 2022-05-11 11:33 | Outpatient (CLI) | payer OTHER, SELFPAY ==
[2022-05-11 12:45] LABS: Anion Gap 7 mmol/L (8-16); Blood Urea Nitrogen 20 mg/dL (7-17); Calcium 8.6 mg/dL (8.4-10.2); Carbon Dioxide 31 mmol/L (22-30); Chloride 102 mmol/L (98-107); Estimated Glomerular Filt Rate > 60; Glucose 95 mg/dL (65-110); Magnesium 2.2 mg/dL (1.6-2.3); Potassium 4.2 mmol/L (3.4-5.0); Sodium 140 mmol/L (137-145)
[2022-05-11 13:10] LABS: Influenza A QL RT-PCR Negative (Negative); Influenza B QL RT-PCR Negative (Negative); RSV RNA, RT-PCR Negative (Negative); SARS-CoV-2 RNA PCR Positive
== END 2022-05-11 11:34 | disposition home or self-care (01) ==
LOC: ANHLAB 11:36
PROVIDERS: PCP Physician Assistant; Visit Provider Internal Medicine Cardiovascular Disease
DX: Z01.812 Encounter for preprocedural laboratory examination (principal); U07.1 COVID-19; I48.0 Paroxysmal atrial fibrillation
CPT/HCPCS: 36415; 80048; 83735; 87637

== ENCOUNTER 2022-07-02 08:47 | Outpatient (CLI) | payer OTHER, SELFPAY ==
--- NOTE | 2022-07-23 18:46 | WPDHOMESLEEP ---
Sleep Study - Home Unattended Date of Study: 07/02/22 Ordering Provider: Abhishek Meier MD Interpreting Provider: Kennedi Zepeda MD Home Sleep Study Type: Watch PAT Height: 1.68 m Weight: 154.221 kg Body Mass Index: 54.8 Neck Circumference (inches): 16.5 Jackson: 13 Reason for Sleep Study Excessive daytime sleepiness, recent atrial fibrillation Sleep History Marie Lyon is a 56-year-old female with atrial fibrillation who was referred for sleep study due to hypersomnolence and atrial fibrillation with cardioversion with cardioversion. She does not awaken from sleep feeling short of breath or awaken with heartburn, belching or coughing. She occasionally snores and occasionally has loud enough that others complain about it. She constantly has trouble sleeping with a cold. She does not wake up gasping for breath at night. She rarely has breathing problems at night observed by others. She constantly sweats excessively at night. She frequently notices her heart pounding or beating irregularly at night. She frequently falls asleep during the day but never involuntarily or while driving. She does not have loss of muscle tone with strong emotion. She does not have daytime difficulties due to excessive sleepiness. She does not feel paralyzed on waking or falling asleep. She frequently has vivid dreamlike scenes upon awakening or falling asleep. She is not afraid to go to sleep. She occasionally has nightmares. She frequently remembers her dreams. She constantly has racing thoughts. She rarely feels sad or depressed. She constantly has anxiety. She frequently has muscular tension. She frequently notices parts of her body jerking. She occasionally kicks at night. She constantly has crawling and aching feelings in her legs. She constantly has leg pain at night. She frequently has morning jaw pain. She constantly grinds her teeth during sleep. She frequently is bothered by pain during the day. She frequently is awakened by pain during the night. She constantly wakes up feeling stiff in the morning with sore achy muscles and pain in the neck and spine. She has fatigue. She reports a 40 lb weight gain in the last year. Normal bedtime is between 8:00 p.m. and 9:00 p.m.. She is usually able to fall asleep within 30 minutes. She typically wakes 2-3 times at night. It seems to help to have the television on for background sound while she tries to fall asleep. Most often she is able to return to sleep within 20-30 minutes. She wakes between 5:00 a.m. and 6:00 a.m.. She keeps the same sleep schedule on weekends. She estimates getting 5-6 hours of sleep at night. She may take a nap in the afternoon or evening. A short nap lasting 10-15 minutes is not refreshing. She is drowsy for 2 hours on after waking. She feels better in the morning compared to other times of day. Habits: Never smoked tobacco. No caffeine, alcohol or recreational substances. [facility] Past Medical History Medical History (Updated 07/23/22 @ 19:08 by Kennedi Zepeda MD) Allergic rhinitis Atrial fibrillation Hyperlipidemia, unspecified Hypertension Surgical History Surgical History (Updated 07/14/22 @ 12:40 by LISS Craven) History of appendectomy 10/2015 History of cardioversion 06/2022 History of section 1984 History of colonoscopy with polypectomy 05/12/2021 History of lithotripsy with ureteral stent placement 10/2015 Family History Family History Mother Family history of heart disease in male family member before age 55 Hypertension History of open heart surgery Sibling Family history of malignant neoplasm of testis Lung cancer Grandparent Acute myocardial infarction Diabetes mellitus Other Cerebrovascular accident Diabetes mellitus Social History Social History Social History: Surrogate
[2022-07-23 19:22] VITALS: BMI 54.8
--- NOTE | 2022-10-23 10:10 | SLEEP ---
Dr Meier ref pt to different [facility] facility
== END 2022-07-03 10:07 | disposition home or self-care (01) ==
LOC: ANHCSM 08:48
PROVIDERS: PCP Family Medicine; Visit Provider Internal Medicine Cardiovascular Disease
DX: G47.33 Obstructive sleep apnea (adult) (pediatric) (principal); I48.0 Paroxysmal atrial fibrillation; I10 Essential (primary) hypertension; E78.5 Hyperlipidemia, unspecified
CPT/HCPCS: 95800

== ENCOUNTER 2022-07-11 11:29 | Outpatient (CLI) | payer OTHER, SELFPAY ==
--- NOTE | ~2022-07-11 | MM_ITS ---
EXAMINATION: MM screening kirk BI w dov HISTORY: Screening mammogram TECHNIQUE: Craniocaudal and mediolateral oblique 3-D tomosynthesis images were obtained and synthetic 2-D images were generated. CAD analysis was submitted and interpreted. COMPARISON: 05/02/2021 diagnostic left mammogram and limited left breast ultrasound . bilateral screening mammogram 11/2019 diagnostic left mammogram and limited left breast ultrasound 10/19/2019, 02/05/2018 bilateral screening mammogram BREAST PARENCHYMAL COMPOSITION: There are scattered areas of fibroglandular density. FINDINGS: Stable mild fibroglandular asymmetry. There is no evidence of suspicious mass, calcificatio n, or architectural distortion to suggest malignancy in either breast. There has been no suspicious i nterval change. IMPRESSION: 1. No mammographic evidence of malignancy. 2. Recommend routine screening mammography in one year. BI-RADS Category 2: Benign finding(s). Reviewed, dictated and finalized at location A.
== END 2022-07-11 11:30 | disposition home or self-care (01) ==
LOC: ANHIMG 11:40
PROVIDERS: PCP Family Medicine; Visit Provider Family Medicine
DX: Z12.31 Encounter for screening mammogram for malignant neoplasm of breast (principal)
CPT/HCPCS: 77063; 77067

== ENCOUNTER 2022-08-06 18:49 | Observation (INO) | payer OTHER, SELFPAY ==
[2022-08-06] VITALS (9 sets, daily range): BP systolic 122–140; BP diastolic 62–84; PULSE 53–81; RESP 14–24; TEMP 36.1; O2SAT 92–100
--- NOTE | ~2022-08-06 | CT_ITS ---
EXAMINATION: CT abdomen pelvis w con DATE: 08/06/2022 20:34 INDICATION: Right upper quadrant abdominal pain. Epigastric abdominal pain. TECHNIQUE: Computed tomography (CT) of the abdomen and pelvis was performed with 100 mL Omnipaque 350 intravenous contrast. Automated exposure control and iterative reconstruction technique were employe d. The dose-length product was 1701.92 mGy-cm. COMPARISON: CT abdomen and pelvis 10/17/2015 FINDINGS: The visualized portions of the lung bases demonstrate mild atelectasis. No pleural effusion . The heart size is normal. No pericardial effusion. The liver, gallbladder, spleen, pancreas, and ad renal glands are normal. There is a 2.4 cm cyst in right kidney. There is a delayed right-sided contr ast nephrogram. There is moderate right hydronephrosis. There is a 16 mm stone at right ureteropelvic junction. There is cortical thinning of left kidney. There are no dilated loops of bowel. There are changes of appendectomy. There are no pathologically enlarged lymph nodes. There is no free intraperi toneal fluid. There is mild thoracic and lumbar spondylosis. IMPRESSION: 1. 16 mm stone at right ureteropelvic junction with moderate right hydronephrosis. Reviewed, dictated and finalized at location E. IMPRESSION: 1. 16 mm stone at right ureteropelvic junction with moderate right hydronephros is.
--- NOTE | ~2022-08-06 | XR_ITS ---
EXAMINATION: XR stent kub - surgery DATE: 08/07/2022 14:13 INDICATION: Right internal ureteral stent placement TECHNIQUE: 3 fluoroscopic images of the abdomen and pelvis were obtained during procedure performed b avani Elmore. Radiologist was not present for the imaging or procedure. The amount of fluoroscopy gordon e used during this procedure was 0.4 minutes. COMPARISON: None. FINDINGS: Residual excreted contrast in the right renal collecting system with mild hydronephrosis. There is in creased density in the region of the ureterovesicular junction likely representing the obstructing st one identified on prior CT but difficult to distinguish from the excreted contrast. Subsequent images demonstrate placement of a right internal ureteral stent which extends into a pole calyx of the righ t kidney and with distal loop formed in the contrast opacified bladder. IMPRESSION: 1. Right intrarenal stent placement in expected position. 2. Mild right hydroureteronephrosis on shotblast operator image secondary to obstructing stone at the ureteropelvi c junction but appreciated on prior CT. Reviewed, dictated and finalized at location A. IMPRESSION: 1. Right intrarenal stent placement in expected position. 2. Mild right hydroureteronephrosis on shotblast operator image secondary to obstructing sto ne at the ureteropelvic junction but appreciated on prior CT.
--- NOTE | 2022-08-06 19:07 | ECG_ITS ---
Measurements Intervals [place] Rate: 54 P: 39 IA: 174 QRS: -18 QRSD: 92 T: 8 QT: 500 QTc: 477 Interpretive Statements SINUS BRADYCARDIA VOLTAGE CRITERIA FOR LVH [MEETS CRITERIA IN ONE OF: R(aVL), S(V1), R(V5), R(V5/V6)+S(V1)] PROLONGED QT INTERVAL COMPARED TO ECG 03/30/2022 16:13:15 SINUS BRADYCARDIA NOW PRESENT Electronically Signed On 08-07-2022 10:59:59 CDT by Maurisio Love M.D.
[2022-08-06 19:41] LABS: Basophils Absolute Auto 0.1 K/mm3 (0.0-0.1); Basophils Percent Auto 0.5 % (0.2-1.2); Eosinophils Absolute Auto 0.1 K/mm3 (0-0.3); Eosinophils Percent Auto 0.8 % (0-4.4); Hemoglobin 14.1 g/dL (12.0-15.0); Immature Granulocyte Absolute 0.05 K/mm3 (0.00-0.031); Immature Granulocyte Percent A 0.3 % (0-0.5); Lymphocytes Absolute Auto 3.05 K/mm3 (0.9-3.2); Lymphocytes Percent Auto 20.6 % (18.3-44.2); Mean Corpuscular Hemoglobin 30.3 pg (26-34); Mean Corpuscular Volume 94.6 fl (80-100); Monocytes Absolute Auto 0.8 K/mm3 (0.1-0.6); Monocytes Percent Auto 5.3 % (2.6-8.5); Neutrophils Absolute Auto 10.8 K/mm3 (1.3-6.7); Neutrophils Percent Auto 72.5 % (45.5-73.1); Platelet Count Result 332 k/mm3 (150-375); Red Blood Count 4.65 M/mm3 (4.2-5.4); Red Cell Distribution Width 13.3 % (11.5-14.5); White Blood Count 14.8 K/mm3 (4.5-10.0)
[2022-08-06 19:50] LABS: Alanine Aminotransferase 17 U/L (6-35); Albumin Level 4.5 g/dL (3.5-5.1); Alkaline Phosphatase 89 U/L (38-126); Anion Gap 7 mmol/L (8-16); Aspartate Amino Transferase 20 U/L (14-36); Bilirubin,Total 0.4 mg/dL (0.2-1.3); Blood Urea Nitrogen 23 mg/dL (7-17); Calcium 9.3 mg/dL (8.4-10.2); Carbon Dioxide 30 mmol/L (22-30); Chloride 96 mmol/L (98-107); Estimated CRCL calculation 102 ml/min; Estimated Glomerular Filt Rate > 60; Glucose 159 mg/dL (65-110); Lipase 46 U/L (23-300); Sodium 133 mmol/L (137-145)
[2022-08-06] MEDS: SODIUM CHLORIDE 0.9% IV 1,000 ML 999 ML IV CONT ×2 (20:17→21:49)
[2022-08-06] MEDS: ONDANSETRON INJ 4 MG/2 ML VIAL IV PUSH (20:17)
--- NOTE | 2022-08-06 20:17 | ED.ABDPAIN ---
HPI - Abdominal Pain General Chief Complaint: Abdominal Pain <DAMIR Colin Last Filed: 08/07/22 01:56> Stated Complaint: confusion <DAMIR Colin Last Filed: 08/07/22 01:56> Time Seen by Provider: 08/06/22 19:22 <DAMIR Colin Last Filed: 08/07/22 01:56> Source: patient <DAMIR Colin Last Filed: 08/07/22 01:56> Mode of arrival: ambulatory <DAMIR Colin Last Filed: 08/07/22 01:56> Limitations: no limitations <DAMIR Colin Last Filed: 08/07/22 01:56> History of Present Illness HPI narrative: Patient is a 56-year-old female who presents to the ED with report of right upper abdomen and back pain. Patient reports she was sitting at home and developed pain around 5:30 PM today. She states pain is present in her right upper abdomen, right lateral abdomen, right mid back/flank. She did not take anything for the pain. Pain has been constant since then. She does report a history of kidney stones several years ago and states the pain feels somewhat similar. She reports nausea, but denies vomiting. Reports recent constipation, but did have a small bowel movement today. Denies rectal bleeding or melena. Denies diarrhea. Denies fevers. Denies dysuria or hematuria. Patient is on Eliquis due to history of A-fib. <DAMIR Colin Last Filed: 08/07/22 01:56> Related Data Home Medications: Home Medications Medication Instructions Recorded Confirmed lisinopril 40 mg tablet 40 mg PO DAILY 05/02/21 08/07/22 aspirin 81 mg tablet 81 mg PO DAILY 03/30/22 08/07/22 <DAMIR Colin Last Filed: 08/07/22 01:56> Allergies/Adverse Reactions: Allergies Allergy/AdvReac Type Severity Reaction Status Date / Time No Known Allergies Allergy Verified 08/07/22 12:28 <Cielo Mike PA-C - Last Filed: 08/07/22 01:56> Review of Systems Review of Systems: CONSTITUTIONAL: Denies fever, chills, or sweats. CARDIOVASCULAR: Denies chest pain. RESPIRATORY: Denies dyspnea. GASTROINTESTINAL: See HPI. GENITOURINARY: Denies dysuria or hematuria. SKIN: Denies rash or itching. MUSCULOSKELETAL: See HPI. NEUROLOGIC: Denies headache, numbness, or weakness. <Cielo Mike PA-C - Last Filed: 08/07/22 01:56> All systems reviewed & are unremarkable except as noted in HPI and below <Cielo Mike PA-C - Last Filed: 08/07/22 01:56> PMF Past Medical History Medical History: Medical History Allergic rhinitis Atrial fibrillation (~03/2022) Atrial fibrillation status post cardioversion BMI 50.0-59.9, adult Chronic anticoagulation Hyperlipidemia, unspecified Hypertension Kidney stones Obstructive sleep apnea At home sleep study positive for moderate obstructive sleep apnea 07/2022. Patient needs a titrating sleep study. <DAMIR Colin Last Filed: 08/07/22 01:56> Surgical History Surgical History: Surgical History History of appendectomy 10/2015 History of cardioversion 06/2022 History of section 1984 History of colonoscopy with polypectomy 05/12/2021 History of lithotripsy with ureteral stent placement 10/2015 <Cielo Mike PA-C - Last Filed: 08/07/22 01:56> Family History Family History: Family History Mother Family history of heart disease in male family member before age 55 Hypertension History of open heart surgery Sibling Family history of malignant neoplasm of testis Lung cancer Grandparent Acute myocardial infarction Diabetes mellitus Other Cerebrovascular accident Diabetes mellitus <DAMIR Colin Last Filed: 08/07/22 01:56> Social History Social History: Social History (Reviewed 0
[2022-08-06] MEDS: MORPHINE SULFATE (*CRX) 4 MG/ML INJ IV PUSH (20:18)
[2022-08-06] MEDS: HYDROmorphone HCL INJ (*CRX) 1 MG/ML SYR IV PUSH (21:30)
[2022-08-06 21:46] LABS: Appearance Urine Clear (Clear); Bacteria Urine None Seen /hpf; Bilirubin Urine Negative (Negative); Blood Urine 3+ (Negative); Color Urine Yellow (Yellow); Glucose Urine UA Negative (Negative); Ketones Urine Negative (Negative); Leukocyte Esterase Ur Trace LEU/UL (Negative); Nitrate Urine Negative (Negative); Non Pathogenic Casts 0-2; Protein Urine Negative (Negative); RBC Urine 51-100 /hpf (0-2); Squamous Epithelial Cell Urine None seen /hpf (Few); Urobilinogen Urine 0.2 mg/dL (<2.0); WBC Urine 0-5 /hpf
[2022-08-06 21:52] LABS: Add Urine Microscopic? YES; Specific Grav Ur 1.037 (1.001-1.035)
[2022-08-07] VITALS (11 sets, daily range): BP systolic 88–122; BP diastolic 55–76; PULSE 56–82; RESP 12–18; TEMP 36.1–36.9; O2SAT 96–100; BMI 54.5
[2022-08-07] MEDS: HYDROmorphone HCL INJ (*CRX) 1 MG/ML SYR IV PUSH ×3 (00:21→10:42)
--- NOTE | 2022-08-07 00:35 | ADMGEN ---
This patient, Marie Lyon, was admitted to Medical Room 347-01. Patient/family oriented to hospital policies and general routines including ID bracelet, bed and alarms, visiting hours, pain management, procedures, bathroom and other care routines, personal items, smoking policy, room service/diet, and visiting hours. Information on how to activate the Rapid Response Team has been discussed. Patient/Family are encouraged to report perceived risks to care and to ask questions if they do not understand what they are told or what they should do.
[2022-08-07 01:50] LABS: INR 1.1; Prothrombin Time 14.2 Seconds (11.1-14.7)
[2022-08-07 01:52] LABS: Partial Thromboplastin Time 28.9 SECONDS (22.3-36.8)
[2022-08-07] MEDS: SODIUM CHLORIDE 0.9% IV 1,000 ML 100 ML IV CONT (02:15)
--- NOTE | 2022-08-07 04:28 | PM.IMHP ---
H&P: HPI History of Present Illness Date/Time: 08/07/22 02:55 Chief Complaint: Abdominal pain and back pain Narrative: 56-year-old female with a past medical history kidney stones, paroxysmal atrial fibrillation, essential hypertension, morbid obesity and recent diagnosis of obstructive sleep apnea who presented to the ER with abdominal pain and right flank pain. The patient reported that this afternoon when she got home from work she in had right lower abdominal pain that radiated upward to the right upper quadrant. Shortly thereafter the pain wraps around her right side into her right flank. She denied having any dysuria. But she had noticed over the last week that her urine was somewhat reddish her blood-tinged. After onset of her abdominal pain which was severe in nature she developed some nausea and felt as if she was constipated. She felt as if she needed to strain to have a bowel movement but was only able to pass a small amount of stool. She had associated diaphoresis and cold chills. Once she arrived to the ER she did have 1 episode of vomiting. Her pain was only improved after she received dilaudid in the ER. Morphine did not improve her symptoms. She did receive some Zofran after her emesis. She denies having any measured fevers. She denies sensation of incomplete bladder emptying. She does admit to drinking 2-3 sodas a day and 2-3 cups of coffee a day. She states that in the past when she has had kidney stones she has made dietary changes and had cut back on caffeine but over the last couple of years has fallen back into bad habits. She reports that she drinks a fair amount of water with lemon. She is has stones large enough for she has had have multiple episodes of lithotripsy performed. She reports that at the time of her sudden onset of symptoms today she was only able to dribble some urine. She recently had an at home polysomnogram but she is unaware of the results. Results demonstrated moderate obstructive sleep apnea and given the degree of her desaturations and the length of time of hypoxia she needs to have an in-lab CPAP titration. The patient reports excessive daytime sleepiness. At the time of my evaluation the patient was falling asleep multiple times and she had not had any narcotics for a couple of hours. She stated she is having trouble holding her eyes open but I evaluated the patient at approximately 03:00. She also having restless leg movements. This is unchanged from her baseline. She has not had any lower extremity swelling and denies orthopnea. She is postmenopausal. She is morbidly obese but reports that her weight has been stable. She has recently tried to adjust her diet where she is eating more fruits and vegetables. Review of Systems Review of Systems: 12 systems were reviewed with pertinent positives and negatives per HPI. Except as documented in the HPI, all other systems were reviewed and are negative. [facility] Past Medical History Medical History (Updated 08/07/22 @ 07:41 by Amalia Herbert DO) Allergic rhinitis Atrial fibrillation (~03/2022) Atrial fibrillation status post cardioversion BMI 50.0-59.9, adult Chronic anticoagulation Hyperlipidemia, unspecified Hypertension Kidney stones Obstructive sleep apnea At home sleep study positive for moderate obstructive sleep apnea 07/2022. Patient needs a titrating sleep study. Surgical History Surgical History History of appendectomy 10/2015 History of cardioversion 06/2022 History of section 1984 History of colonoscopy with polypectomy 05/12/2021 History of lithotripsy with ureteral stent placement 10/2015 Family History Family History Mother Family history of heart disease in male family member before age 55 Hypertension History of open heart surgery Sibling Family history of malignant neoplasm of t
--- NOTE | 2022-08-07 07:14 | WPDURCON ---
Assessment and Plan Assessment and plan (1) Kidney stones: Code(s): N20.0 - Calculus of kidney Status: Acute Assessment and Plan: Cysto., right stent placement today. Right ESWL in the future (following clearance to stop Eliquis). Urology Consult Note HPI Date Seen: 08/07/22 Requesting Physician: Santa Garza PA-C Primary Care Provider: Oswaldo Raygoza MD Consult Narrative Narrative: Marie Lyon is a 56 year old female who had a large renal calculus 4-5 years ago that required 3 lithotripsies to clear. She presents to the ER last night with right flank pain and imaging demonstrated a 19 mm right UPJ calculus. She is admitted for pain control. With complicating as it 6 months ago she developed atrial fibrillation remains on Eliquis. She has since been cardioverted in remains in a sinus rhythm. Discussion of options she has elected for cysto with right stent placement today and right ESWL [id number]. Review of Systems Cardiovascular: Cardiovascular: Denies chest pain, Denies lightheadedness, Denies palpitations and Denies dyspnea Respiratory: Respiratory: Denies dyspnea Gastrointestinal: Gastrointestinal: Denies diarrhea, Denies nausea and Denies vomiting Genitourinary: Genitourinary: Denies hematuria and Denies dysuria Endocrine: Endocrine: Denies palpitations PMFSH Past Medical History Medical History Allergic rhinitis Atrial fibrillation Hyperlipidemia, unspecified Hypertension Kidney stones Surgical History Surgical History History of appendectomy 10/2015 History of cardioversion 06/2022 History of section 1984 History of colonoscopy with polypectomy 05/12/2021 History of lithotripsy with ureteral stent placement 10/2015 Family History Family History Mother Family history of heart disease in male family member before age 55 Hypertension History of open heart surgery Sibling Family history of malignant neoplasm of testis Lung cancer Grandparent Acute myocardial infarction Diabetes mellitus Other Cerebrovascular accident Diabetes mellitus Social History Social History Social History: Surrogate medical decision maker: Kelechi Aguilarrean, spouse. Code status: Full code. Smoking status: Never smoker Second hand tobacco smoke exposure: No Alcohol intake: current Drinks per week: 1 Substance use: never Substance use type: does not use Last use: less than one drink a week Lack of Transportation: No Lack of Food: Never True Current Housing: I Have Housing Concerned About Future Housing: No Difficulty Paying Gas/Electric Bills: No Difficulty Paying for Meds: No Currently Unemployed: No Education: Master's Degree or Higher Difficulty w/ Childcare or Family Care: No Living arrangements: with family Additional living arrangements comments: Lives in [place] with spouse and 1 son. They have 6 children. 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 Spiritual care concerns: No Meds Home Medications and Allergies Home Medications Medication Instructions Recorded Confirmed Type lisinopril 40 mg tablet 40 mg PO DAILY 05/02/21 08/07/22 History aspirin 81 mg tablet 81 mg PO DAILY 03/30/22 08/07/22 History apixaban 5 mg tablet (Eliquis) 5 mg PO Q12HR #180 tabs 04/20/22 08/07/22 Rx metoprolol tartrate 100 mg tablet 100 mg PO BID #180 tabs 07/13/22 08/07/22 Rx Allergies Allergy/AdvReac Type Severity Reaction Status Date / Time No Known Allergies Allergy Verified 08/07/22 00:47 Vital Signs Vital Signs - 24 hr 08/06/22 19:01 08/06/22 20:21 08/06/22 19:15 Temperature 97.0 F L Pulse Rate 62 59 L 70 Respiratory R
--- NOTE | 2022-08-07 07:17 | WPDHPUPDATE1 ---
History and Physical Update Update Date/Time: 08/07/22 07:17 History and Physical has been reviewed, including an updated exam of the patient. There are NO changes in the patient's condition. Risks, benefits, and alternatives have been discussed and questions answered. Patient agrees to proceed with procedure.
[2022-08-07 10:33] LABS: Basophils Percent Auto 0.2 % (0.2-1.2); Eosinophils Percent Auto 0.1 % (0-4.4); Hematocrit 42.1 % (37.0-47.0); Hemoglobin 13.3 g/dL (12.0-15.0); Immature Granulocyte Absolute 0.06 K/mm3 (0.00-0.031); Immature Granulocyte Percent A 0.4 % (0-0.5); Lymphocytes Absolute Auto 1.81 K/mm3 (0.9-3.2); Lymphocytes Percent Auto 12.8 % (18.3-44.2); Mean Corpuscular HGB Conc 31.6 g/dl (32-36); Mean Corpuscular Hemoglobin 30.4 pg (26-34); Mean Corpuscular Volume 96.1 fl (80-100); Mean Platelet Volume 10.7 fl (7.4-10.4); Monocytes Absolute Auto 1.3 K/mm3 (0.1-0.6); Monocytes Percent Auto 9.4 % (2.6-8.5); Neutrophils Percent Auto 77.1 % (45.5-73.1); Platelet Count Result 281 k/mm3 (150-375); Red Blood Count 4.38 M/mm3 (4.2-5.4); Red Cell Distribution Width 13.8 % (11.5-14.5); White Blood Count 14.2 K/mm3 (4.5-10.0)
[2022-08-07 10:51] LABS: Anion Gap 5 mmol/L (8-16); Blood Urea Nitrogen 20 mg/dL (7-17); Calcium 8.2 mg/dL (8.4-10.2); Carbon Dioxide 28 mmol/L (22-30); Chloride 102 mmol/L (98-107); Estimated CRCL calculation 76 ml/min; Estimated Glomerular Filt Rate 51; Glucose 112 mg/dL (65-110); Potassium 4.3 mmol/L (3.4-5.0); Sodium 135 mmol/L (137-145)
--- NOTE | 2022-08-07 11:31 | PM.IMPN ---
Progress Note: A&P Assessment and Plan (1) Calculus of proximal right ureter: Code(s): N20.1 - Calculus of ureter Status: Acute (2) Hydronephrosis: Qualifiers: Hydronephrosis type: with ureteropelvic junction obstruction Qualified Code(s): Q62.11 - Congenital occlusion of ureteropelvic junction Code(s): N13.30 - Unspecified hydronephrosis Status: Acute (3) Obstructive sleep apnea: Code(s): G47.33 - Obstructive sleep apnea (adult) (pediatric) Status: Acute (4) BMI 50.0-59.9, adult: Code(s): Z68.43 - Body mass index [BMI] 50.0-59.9, adult Status: Acute (5) Leukocytosis: Qualifiers: Leukocytosis type: unspecified Qualified Code(s): D72.829 - Elevated white blood cell count, unspecified Code(s): D72.829 - Elevated white blood cell count, unspecified Status: Acute Plan Large UPJ stone causing obstruction and subsequent hydronephrosis. renal function is stable. Patient has trace leukocyte esterase but no evidence of acute infection. leukocytosis noted on presentation patient received a dose of Rocephin. Urology has been consulted recommendations are appreciated. Patient is NPO for cystoscopy with stent placement this afternoon. She will require a right ESWL in the future following cardiac clearance to stop Eliquis. Continue to monitor urine output. Continue with supportive care, analgesics antiemetics. Home Eliquis and aspirin is on hold perioperatively. Blood pressures are stable. 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 She recently had a sleep study is is awaiting these results. She is currently on 2 L supplemental oxygen, however no episodes of hypoxia and is maintaining adequate oxygen saturations Patient has chronic atrial fibrillation, rate is controlled. Eliquis on hold as above, will resume when okay with urologic service. The WBC remains elevated, likely reactive. No findings to suggest underlying infectious etiology Subjective Date/time seen: 08/07/22 11:31 Interval history: Date of service: 08/07/2022 She endorses 7/10 right flank pain. Denies dysuria. No hematuria. she does complain of nausea and had 1 episode of emesis this morning around 7:00 a.m.. She has been NPO for procedure this afternoon. She does endorse some intermittent shortness of breath but denies at this time. Denies chest pain. No cough. no fevers or chills. Review of Systems Review of Systems: 12 systems were reviewed with pertinent positives and negatives per HPI. Except as documented in the HPI, all other systems were reviewed and are negative. All systems reviewed & are unremarkable except as noted in HPI and below Exam Narrative: General: Obese, well-appearing 56-year-old female, sitting up in bed, comfortable, NARD Neuro: awake, alert and oriented x4, speech clear, no focal neuro deficits noted HEENMT: normocephalic, atraumatic, EOMI, sclerae anicteric Respiratory: clear to auscultation bilaterally, nonlabored breathing Cardio: regular rate, regular rhythm with S1-S2 Abdomen: nondistended, normoactive bowel sounds, soft, tender to palpation in right lower quadrant and flank Extremities: no edema, erythema, or tenderness to palpation Skin: no rashes or lesions, warm and dry Psych: appropriate mood and affect, judgment and insight intact Objective Data Vital Signs Vital Signs: Vital Signs - 24 hr 08/06/22 19:01 08/06/22 20:21 08/06/22 19:15 Temperature 97.0 F L Pulse Rate 62 59 L 70 Respiratory Rate 18 18 15 Blood Pressure 138/83 140/84 Pulse Oximetry 98 100 99 Oxygen Delivery Room Air Oxygen Flow Rate 08/06/22 19:30 08/06/22 19:45 08/06/22 20:16 Temperature Pulse Rate 53 L 65 59 L Respiratory Rate 18 21 H 19 Blood Pressure 140/84 Pulse Oximetry 100
--- NOTE | 2022-08-07 11:58 | PC.NURSE ---
Pt to preop at 1205
[2022-08-07] MEDS: LACTATED RINGERS 1,000 ML 30 ML IV CONT (12:10)
--- NOTE | 2022-08-07 12:51 | WPDANESEPPF ---
Anes - Initial Pre Proc Eval Procedure: Operation Date: 08/07/22 13:00 Proposed Procedures p Cystoscopy, Right Stent Placement - Darrell Elmore MD Date/Time: 08/07/22 12:51 Surgeon: Santa Garza PA-C Pre Op Diagnosis: 16mm r upj stone w/hydronephrosis Patient Data Age: 56 Gender: F Height: 1.68 m Weight: 153.3 kg Last Vital Signs Temp 36.1 C L 08/07/22 05:31 Pulse 66 08/07/22 05:31 Resp 16 08/07/22 05:31 BP 108/74 08/07/22 05:31 Pulse Ox 99 08/07/22 05:31 O2 Del Method Nasal Cannula 08/07/22 01:18 O2 Flow Rate 2 08/07/22 01:18 Allergies Allergy/AdvReac Type Severity Reaction Status Date / Time No Known Allergies Allergy Verified 08/07/22 12:28 Home Medications Medication Instructions Recorded Confirmed Type lisinopril 40 mg tablet 40 mg PO DAILY 05/02/21 08/07/22 History aspirin 81 mg tablet 81 mg PO DAILY 03/30/22 08/07/22 History apixaban 5 mg tablet (Eliquis) 5 mg PO Q12HR #180 tabs 04/20/22 08/07/22 Rx metoprolol tartrate 100 mg tablet 100 mg PO BID #180 tabs 07/13/22 08/07/22 Rx Laboratory Tests 08/06/22 08/07/22 08/07/22 19:31 00:54 10:24 WBC 14.8 H K/mm3 14.2 H K/mm3 (4.5-10.0) (4.5-10.0) RBC 4.65 M/mm3 4.38 M/mm3 (4.2-5.4) (4.2-5.4) Hgb 14.1 g/dL 13.3 g/dL (12.0-15.0) (12.0-15.0) Hct 44.0 % 42.1 % (37.0-47.0) (37.0-47.0) MCV 94.6 fl 96.1 fl (80-100) (80-100) MCH 30.3 pg 30.4 pg (26-34) (26-34) MCHC 32.0 g/dl 31.6 L g/dl (32-36) (32-36) RDW 13.3 % 13.8 % (11.5-14.5) (11.5-14.5) Plt Count 332 k/mm3 281 k/mm3 (150-375) (150-375) MPV 11.0 H fl 10.7 H fl (7.4-10.4) (7.4-10.4) Immature Gran % (Auto) 0.3 % 0.4 % (0-0.5) (0-0.5) Neut % (Auto) 72.5 % 77.1 H % (45.5-73.1) (45.5-73.1) Lymph % (Auto) 20.6 % 12.8 L % (18.3-44.2) (18.3-44.2) [place] % (Auto) 5.3 % 9.4 H % (2.6-8.5) (2.6-8.5) Eos % (Auto) 0.8 % 0.1 % (0-4.4) (0-4.4) Baso % (Auto) 0.5 % 0.2 % (0.2-1.2) (0.2-1.2) Lymph # (Auto) 3.05 K/mm3 1.81 K/mm3 (0.9-3.2) (0.9-3.2) [place] # (Auto) 0.8 H K/mm3 1.3 H K/mm3 (0.1-0.6) (0.1-0.6) Eos # (Auto) 0.1 K/mm3 0.0 K/mm3 (0-0.3) (0-0.3) Baso # (Auto) 0.1 K/mm3 0.0 K/mm3 (0.0-0.1) (0.0-0.1) Abs Immat Gran (auto) 0.05 H K/mm3 0.06 H K/mm3 (0.00-0.031) (0.00-0.031) Absolute Neuts (auto) 10.8 H K/mm3 11.0 H K/mm3 (1.3-6.7) (1.3-6.7) Absolute Nucleated RBC 0.0 K/mm3 0.0 K/mm3 (0.0-0.012) (0.0-0.012) Nucleated RBC % 0.0 % 0.0 % (0.0-0.2) (0.0-0.2) PT 14.2 Seconds (11.1-14.7) INR 1.1 APTT 28.9 SECONDS (22.3-36.8) Sodium 133 L mmol/L (137-145) Potassium 4.0 mmol/L (3.4-5.0) Chloride 96 L mmol/L (98-107) Carbon Dioxide 30 mmol/L (22-30) Anion Gap 7 L mmol/L (8-16) BUN 23 H mg/dL (7-17) Creatinine 0.80 mg/dL (0.7-1.0) Estim Creat Clear Calc 102 ml/min Estimated GFR > 60 (59 - ) Glucose 159 H mg/dL (65-110) Calcium 9.3 mg/dL (8.4-10.2) Total Bilirubin 0.4 mg/dL (0.2-1.3) AST 20 U/L (14-36) ALT 17 U/L (6-35) Alkaline Phosphatase 89 U/L (38-126) Total Protein 7.0 g/dL (6.3-8.2) Albumin 4.5 g/dL (3.5-5.1) Lipase 46 U/L (23-300) Urine Color Yellow (Yellow) Urine Appearance Clear (Clear) Urine pH 5.0 (5.0-9.0) Ur Specific [place] 1.037 H (1.001-1.035) Urine Protein Negative mg/dL (Negative) Urine Glucose (UA) Negative mg/dL (Negative) Urine Ketones Negative mg/dL (Negative) Ur Blood (Man) 3+ H (Negative) Urine Nitrate Negative (Negative) Urine B
[2022-08-07] MEDS: ceFAZolin 3 GM/D5W 100 ML 100 ML IVPB (13:38)
--- NOTE | 2022-08-07 13:53 | W.PM.PROC2 ---
Procedure Note - Detailed Date of Procedure 08/07/22 Pre-op Diagnosis 16mm r upj stone w/hydronephrosis Post-op Diagnosis Same Procedure Performed Cystoscopy with right ureteral stent placement Surgeon Darrell Elmore MD Anesthesia General Description of Procedure patient is brought the op suite was prepped draped in routine sterile fashion while in dorsal lithotomy position. Stone after the uneventful induction of a general LMA anesthetic. Cystoscopy is undertaken with a 19 F rigid cystoscope. Bladder neck and urethra endoscopically normal. There was no intravesical foreign body neoplasm. A 0.035 in Glidew[employer] advice into the right renal pelvis. Her large right UPJ calculus is calcified and there was contrast still in the renal pelvis so retrograde pyelography is not necessary. A 4.8 F variable length stent was positioned with the proximal coil in the renal pelvis and distal coil in the bladder. Scopes and wires removed. Urine Output 600
--- NOTE | 2022-08-07 14:27 | SUR.PHASEI ---
1426: Simple mask removed.
--- NOTE | 2022-08-08 07:10 | PM.DS ---
DS: Admitting Diagnosis Discharge Date 08/07/22 Admitting Diagnosis Right ureteral stone DS: Discharge Diagnosis Discharge Diagnosis (1) Calculus of proximal right ureter: Code(s): N20.1 - Calculus of ureter Status: Acute (2) Hydronephrosis: Qualifiers: Hydronephrosis type: with ureteropelvic junction obstruction Qualified Code(s): Q62.11 - Congenital occlusion of ureteropelvic junction Code(s): N13.30 - Unspecified hydronephrosis Status: Acute (3) Obstructive sleep apnea: Code(s): G47.33 - Obstructive sleep apnea (adult) (pediatric) Status: Acute (4) BMI 50.0-59.9, adult: Code(s): Z68.43 - Body mass index [BMI] 50.0-59.9, adult Status: Acute (5) Leukocytosis: Qualifiers: Leukocytosis type: unspecified Qualified Code(s): D72.829 - Elevated white blood cell count, unspecified Code(s): D72.829 - Elevated white blood cell count, unspecified Status: Acute Plan Large UPJ stone causing obstruction and subsequent hydronephrosis. renal functionstable. Patient had trace leukocyte esterase but no evidence of acute infection. leukocytosis noted on presentation and patient received a dose of Rocephin, however leukocytosis felt to be reactive secondary to stone. Seen in consultation by Urology and underwent cystoscopy with right ureteral stent placement on 08/07/2022. Patient tolerated the procedure well and was discharged by Dr. Elmore following the procedure. She will follow-up with urology as an outpatient for right ESWL in the future following cardiac clearance to stop Eliquis. She will continue a course of Keflex for 7 days per Urology recommendations. DS: Summary Hospital Course Hospital Course: Please see above Time Spent with Patient Time attestation: Total time spent providing and/or coordinating discharge services: Exam Narrative: General: Obese, well-appearing 56-year-old female, sitting up in bed, comfortable, NARD Neuro: awake, alert and oriented x4, speech clear, no focal neuro deficits noted HEENMT: normocephalic, atraumatic, EOMI, sclerae anicteric Respiratory: clear to auscultation bilaterally, nonlabored breathing Cardio: regular rate, regular rhythm with S1-S2 Abdomen: nondistended, normoactive bowel sounds, soft, tender to palpation in right lower quadrant and flank Extremities: no edema, erythema, or tenderness to palpation Skin: no rashes or lesions, warm and dry Psych: appropriate mood and affect, judgment and insight intact DS: Data Data Completed and Pending Labs on day of discharge: Labs from last 24 hours 08/07/22 08/07/22 10:25 10:24 WBC 14.2 H RBC 4.38 Hgb 13.3 Hct 42.1 MCV 96.1 MCH 30.4 MCHC 31.6 L RDW 13.8 Plt Count 281 MPV 10.7 H Immature Gran % (Auto) 0.4 Neut % (Auto) 77.1 H Lymph % (Auto) 12.8 L [place] % (Auto) 9.4 H Eos % (Auto) 0.1 Baso % (Auto) 0.2 Lymph # (Auto) 1.81 [place] # (Auto) 1.3 H Eos # (Auto) 0.0 Baso # (Auto) 0.0 Abs Immat Gran (auto) 0.06 H Absolute Neuts (auto) 11.0 H Absolute Nucleated RBC 0.0 Nucleated RBC % 0.0 Sodium 135 L Potassium 4.3 Chloride 102 Carbon Dioxide 28 Anion Gap 5 L BUN 20 H Creatinine 1.10 H Estim Creat Clear Calc 76 Estimated GFR 51 L Glucose 112 H Calcium 8.2 L Imaging Radiologist's impression: ITS Impressions Abdomen/Pelvis CT 08/06/22 20:48 IMPRESSION: 1. 16 mm stone at right ureteropelvic junction with moderate right hydronephrosis. Ureter Stent X-Ray 08/07/22 15:13 IMPRESSION: 1. Right intrarenal stent placement in expected position. 2. Mild right hydroureteronephrosis on pe manager image secondary to obstructing stone at the ureteropelvic junction but appreciated on prior CT. Discharge Plan Discharge Attending physician on discharge: Cielo Mike Consulting providers: Darrell Elmore; Cielo Mike Dischargin
== END 2022-08-07 18:25 | disposition home or self-care (01) ==
LOC: ANHED 23:46 → ANH3MED 08-07
PROVIDERS: Urology; Admitting Provider Internal Medicine; Emergency Provider Physician Assistant; PCP Family Medicine; Visit Provider Physician Assistant
PROC: (CPT 52352; principal; 2022-08-07 13:00)
DX: N13.2 Hydronephrosis with renal and ureteral calculous obstruction (principal); Q62.11 Congenital occlusion of ureteropelvic junction; G47.33 Obstructive sleep apnea (adult) (pediatric); Z68.43 Body mass index [BMI] 50.0-59.9, adult; I48.91 Unspecified atrial fibrillation; I45.81 Long QT syndrome; E78.5 Hyperlipidemia, unspecified; I10 Essential (primary) hypertension; D72.829 Elevated white blood cell count, unspecified; R00.1 Bradycardia, unspecified; Z79.82 Long term (current) use of aspirin; Z79.01 Long term (current) use of anticoagulants; Z79.899 Other long term (current) drug therapy; Z82.49 Family history of ischemic heart disease and other diseases of the circulatory system
CPT/HCPCS: 52332; 36415; 74177; 80048; 80053; 81001; 83690; 85025; 85610; 85730; 93005; 96361; 96365; 96366; 96374; 96375; 96376; 99285; C1769; C2617; G0378; J0690; J0696; J1170; J2250; J2270; J2405; J2704; J3010; J7030; J7120; Q9967

== ENCOUNTER 2022-08-11 15:41 | Outpatient (CLI) | payer OTHER, SELFPAY | END 2022-08-11 15:42 | disposition home or self-care (01) | LOC: ANHSURGERY 15:45 | PROVIDERS: PCP Family Medicine; Visit Provider Urology | DX: N20.0 Calculus of kidney (principal); Z01.818 Encounter for other preprocedural examination | CPT/HCPCS: 87086 ==

== ENCOUNTER 2022-08-14 01:35 | Day surgery (SDC) | payer OTHER, SELFPAY ==
[2022-08-11 08:39] VITALS: BMI 53.6
--- NOTE | 2022-08-11 08:44 | PC.NURSE ---
Report to the Outpatient Waiting Room, entrance under the green pavilion located off [facility], at time 12:00 on date 08/14/22. Planned Procedure Time: 2:00. Time changes happen often and if your time is changed the preop area will call you the afternoon before. - You and your visitor will be asked to self-screen and do not enter if you have any COVID symptoms. - A mask is optional within the hospital at this time. Patients may have clear liquids (water, carbonated beverages, clear teas, apple juice) until 3 hours prior to surgery with a maximum of 20 ounces. - No food from midnight until time of surgery Take the following medications with a SIP of water the morning of surgery: METOPROLOL, ANTIBIOTIC, PAIN PILL IF NEEDED DO NOT STOP ANY OF YOUR OTHER PRESCRIPTION MEDICATIONS PRIOR TO SURGERY EXCEPT THE FOLLOWING Medications to discontinue per physician: ELIQUIS, ASPIRIN Date to take last dose: 08/12 (PER DR. LINCOLN PER PT) Please no make-up, nail hungarian, hairspray, perfume, deodorant, or body powder the day of surgery. No jewelry (including any body piercings) or valuables the day of surgery, leave them at home. Please take a shower or bath the night before, or the morning of, surgery with an antibacterial soap. Wear comfortable, loose fitting clothing. - Jewelry must be removed prior to entering the operating room. Rings and piercings that are not removed may be cut off. - The hospital will not accept responsibility for valuables. - Please leave all valuables, including medications, at home the day of surgery. If you are going home after surgery, a licensed stacker driver must drive you home. - NO public transportation without another adult if you receive anesthesia. - We recommend that an adult stay with you for 24 hours following discharge. - We also recommend that you do not drive, make important decision, drink alcoholic beverages, or take any drugs that were not prescribed by your health care provider for at least 24 hours after your discharge time. Follow any additional instructions given to you from your surgeon. If you or anyone in your household have experienced Covid symptoms in the past week, please notify your surgeon or the nurse liaison at the phone number below for possible testing. Telephone instructions given to PT - REFUGIO DOMINGUEZ and asked if any additional questions and then verbalized understanding. Patient advised to call surgeon office or pre surgery nurse liaison [phone] if any additional questions.
--- NOTE | 2022-08-13 14:21 | WPDANESEPPF ---
Anes - Initial Pre Proc Eval Procedure: Operation Date: 08/14/22 14:00 Proposed Procedures p Right Renal Extracorporeal Shock Wave Lithotripsy - Darrell Elmore MD Date/Time: 08/13/22 14:21 Surgeon: Darrell Elmore MD Pre Op Diagnosis: right renal stone Patient Data Age: 56 Gender: F Height: 1.68 m Weight: 150.6 kg Allergies Allergy/AdvReac Type Severity Reaction Status Date / Time No Known Allergies Allergy Verified 08/14/22 12:26 Home Medications Medication Instructions Recorded Confirmed Type lisinopril 40 mg tablet 40 mg PO DAILY 05/02/21 08/14/22 History aspirin 81 mg tablet 81 mg PO DAILY 03/30/22 08/14/22 History metoprolol tartrate 100 mg tablet 100 mg PO BID #180 tabs 07/13/22 08/14/22 Rx apixaban 5 mg tablet (Eliquis) 5 mg PO Q12HR #180 tabs 08/07/22 08/14/22 Rx cephalexin 500 mg capsule 500 mg PO Q8H #21 caps 08/07/22 08/14/22 Rx hydrocodone 5 mg-acetaminophen 325 1 - 2 tablet PO Q6H PRN pain #20 08/07/22 08/11/22 Rx mg tablet tabs Patient hx anesthesia problems: none Family hx anesthesia problems: none Results Review: All pre-operative results and documents have been reviewed as part of the pre-operative evaluation. [facility] Past Medical History Medical History Allergic rhinitis Atrial fibrillation (~03/2022) Atrial fibrillation status post cardioversion BMI 50.0-59.9, adult Chronic anticoagulation Hyperlipidemia, unspecified Hypertension Kidney stones Obstructive sleep apnea At home sleep study positive for moderate obstructive sleep apnea 07/2022. Patient needs a titrating sleep study. Surgical History Surgical History History of appendectomy 10/2015 History of cardioversion 06/2022 History of section 1984 History of colonoscopy with polypectomy 05/12/2021 History of lithotripsy with ureteral stent placement 10/2015 Family History Family History Mother Family history of heart disease in male family member before age 55 Hypertension History of open heart surgery Sibling Family history of malignant neoplasm of testis Lung cancer Grandparent Acute myocardial infarction Diabetes mellitus Other Cerebrovascular accident Diabetes mellitus Social History Social History Social History: Surrogate medical decision maker: Kelechi Lyon, spouse. Code status: Full code. Smoking status: Never smoker Second hand tobacco smoke exposure: No Alcohol intake: never Drinks per week: 1 Substance use: never Substance use type: does not use Last use: less than one drink a week Lack of Transportation: No Lack of Food: Never True Current Housing: I Have Housing Concerned About Future Housing: No Difficulty Paying Gas/Electric Bills: No Difficulty Paying for Meds: No Currently Unemployed: No Education: Master's Degree or Higher Difficulty w/ Childcare or Family Care: No Living arrangements: with family Additional living arrangements comments: Lives in [place] with spouse of 40 years and 1 son. They have 6 children. Additional occupation/education comments: She served in the [employer] for 1 year but was honorably discharged after becoming . Her served in the [employer] for 20 years. 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 Spiritual care concerns: No Anes - Eval Final PreProcedure Day of Procedure 08/13/22 14:21 Patient weight: super morbidly obese Heart: regular rate and rhythm Lungs: decreased breath sounds Airway: Mallampati scale class II Neurological: alert and oriented Last oral intake: >/= 8 hours ASA classification: III Emergent: no Anesthetic plan: proceed Anesthesia type and monitoring: general LMA and standard monitoring Result
--- NOTE | ~2022-08-14 | XR_ITS ---
EXAMINATION: XR abdomen/kub 1V DATE: 08/14/2022 12:20 INDICATION: Kidney stone. TECHNIQUE: A supine view of the abdomen on 2 radiographs was obtained. COMPARISON: CT abdomen and pelvis 08/06/2022 FINDINGS: There are no dilated loops of bowel. There is a right internal ureteral stent in expected p osition. There is a 2.4 cm stone in right kidney. IMPRESSION: 1. 2.4 cm stone in right kidney with right internal ureteral stent in expected position. Reviewed, dictated and finalized at location A.
--- NOTE | 2022-08-14 06:50 | WPDHPUPDATE1 ---
History and Physical Update Update Date/Time: 08/14/22 06:50 History and Physical has been reviewed, including an updated exam of the patient. There are NO changes in the patient's condition. Risks, benefits, and alternatives have been discussed and questions answered. Patient agrees to proceed with procedure.
[2022-08-14 12:24] VITALS: BP 138/92; PULSE 66; RESP 20; TEMP 35.8; O2SAT 96
[2022-08-14] MEDS: LACTATED RINGERS 1,000 ML 30 ML IV CONT (12:45)
[2022-08-14] MEDS: ceFAZolin 3 GM/D5W 100 ML 100 ML IVPB (14:36)
--- NOTE | 2022-08-14 15:02 | W.PM.PROC2 ---
Procedure Note - Detailed Date of Procedure 08/14/22 Pre-op Diagnosis Right renal stone Post-op Diagnosis Same Procedure Performed Right ESWL Surgeon Darrell Elmore MD Anesthesia General Description of Procedure The patient was brought to the operative suite where she was placed in the supine position on the Dornier lithotripsy table. The focal point of the lithotripter was placed at a large, 2cm right renal calculus. A total of 2500 shocks were delivered at a power setting of 4. There appeared to be good fragmentation of the stone. The patient tolerated the procedure well and was taken to the recovery room in good condition. Packing No Pathology None sent Complications No immediate complications Condition Stable
[2022-08-14 15:25] VITALS: BP 137/84; PULSE 66; RESP 12; TEMP 36.8; O2SAT 100
[2022-08-14 15:40] VITALS: BP 133/77; PULSE 57; RESP 10; O2SAT 100
[2022-08-14 15:54] VITALS: BP 135/85; PULSE 63; RESP 12; O2SAT 98
[2022-08-14 16:00] VITALS: BP 135/87; PULSE 56; RESP 16
[2022-08-14 16:30] VITALS: BP 134/82; PULSE 55; RESP 16
== END 2022-08-14 16:53 | disposition home or self-care (01) ==
PROVIDERS: PCP Family Medicine; Visit Provider Urology
PROC: (CPT 50590; principal; 2022-08-14 14:00)
DX: N20.0 Calculus of kidney (principal); I48.91 Unspecified atrial fibrillation; I10 Essential (primary) hypertension; E78.5 Hyperlipidemia, unspecified; G47.33 Obstructive sleep apnea (adult) (pediatric); E66.01 Morbid (severe) obesity due to excess calories; Z68.43 Body mass index [BMI] 50.0-59.9, adult; Z79.82 Long term (current) use of aspirin; Z79.01 Long term (current) use of anticoagulants; Z79.891 Long term (current) use of opiate analgesic
CPT/HCPCS: 50590; 74018; 87086; J0690; J1100; J2250; J2405; J2704; J3010; J7120

== ENCOUNTER 2022-08-25 08:37 | Outpatient (CLI) | payer OTHER, SELFPAY ==
--- NOTE | ~2022-08-25 | XR_ITS ---
EXAMINATION: XR abdomen/kub 1V DATE: 08/25/2022 08:55 INDICATION: Calculus of kidney. TECHNIQUE: A supine view of the abdomen on 2 radiographs was obtained. COMPARISON: Abdomen radiographs 08/14/2022, CT abdomen and pelvis 08/06/2022 FINDINGS: There are no dilated loops of bowel. There is a right internal ureteral stent in expected p osition. There is a 2.3 cm stone in right renal pelvis. IMPRESSION: 1. 2.3 cm stone in right renal pelvis with right internal ureteral stent in expected position. Reviewed, dictated and finalized at location A. IMPRESSION: 1. 2.3 cm stone in right renal pelvis with right internal ureteral stent in exp ected position.
== END 2022-08-25 08:38 | disposition home or self-care (01) ==
PROVIDERS: PCP Family Medicine; Visit Provider Urology
DX: N20.0 Calculus of kidney (principal)
CPT/HCPCS: 74018

== ENCOUNTER 2022-09-10 02:57 | Day surgery (SDC) | payer OTHER, SELFPAY ==
[2022-09-01 15:56] VITALS: BMI 53.8
--- NOTE | 2022-09-01 15:57 | PC.NURSE ---
Report to the Outpatient Waiting Room, entrance under the green pavilion located off [facility], at time 0600 on date 09/10/22. Planned Procedure Time: 0730. Time changes happen often and if your time is changed the preop area will call you the afternoon before. - You and your visitor will be asked to self-screen and do not enter if you have any COVID symptoms. - A mask is optional within the hospital at this time. Patients may have clear liquids (water, carbonated beverages, clear teas, apple juice) until 3 hours prior to surgery with a maximum of 20 ounces. - No food from midnight until time of surgery Take the following medications with a SIP of water the morning of surgery: METOPROLOL DO NOT STOP ANY OF YOUR OTHER PRESCRIPTION MEDICATIONS PRIOR TO SURGERY EXCEPT THE FOLLOWING Medications to discontinue per physician: ASPIRIN, ELIQUIS Date to take last dose: CALL DR. LINCOLN Please no make-up, nail german, hairspray, perfume, deodorant, or body powder the day of surgery. No jewelry (including any body piercings) or valuables the day of surgery, leave them at home. Please take a shower or bath the night before, or the morning of, surgery with an antibacterial soap. Wear comfortable, loose fitting clothing. - Jewelry must be removed prior to entering the operating room. Rings and piercings that are not removed may be cut off. - The hospital will not accept responsibility for valuables. - Please leave all valuables, including medications, at home the day of surgery. If you are going home after surgery, a licensed courtesy car driver must drive you home. - NO public transportation without another adult if you receive anesthesia. - We recommend that an adult stay with you for 24 hours following discharge. - We also recommend that you do not drive, make important decision, drink alcoholic beverages, or take any drugs that were not prescribed by your health care provider for at least 24 hours after your discharge time. Follow any additional instructions given to you from your surgeon. If you or anyone in your household have experienced Covid symptoms in the past week, please notify your surgeon or the nurse liaison at the phone number below for possible testing. Telephone instructions given to PT - REFUGOI DOMINGUEZ and asked if any additional questions and then verbalized understanding. Patient advised to call surgeon office or pre surgery nurse liaison [phone] if any additional questions.
[2022-09-10] VITALS (9 sets, daily range): BP systolic 132–153; BP diastolic 68–97; PULSE 50–85; RESP 12–20; TEMP 36–36.3; O2SAT 96–100
--- NOTE | ~2022-09-10 | XR_ITS ---
EXAMINATION: XR stent kub - surgery DATE: 09/10/2022 08:32 INDICATION: Right internal ureteral stent exchange. TECHNIQUE: 4 intraoperative spot fluoroscopic views of the abdomen and pelvis were obtained. I was no t present. Fluoroscopy exposure time was 18 seconds. COMPARISON: CT abdomen and pelvis 08/06/2022 FINDINGS: There is a 1.6 cm stone in right kidney. There is a new right internal ureteral stent in ex pected position. IMPRESSION: 1. 1.6 cm stone in right kidney. 2. New right internal ureteral stent in expected position. Reviewed, dictated and finalized at location A.
--- NOTE | 2022-09-10 06:32 | WPDANESEPPF ---
Anes - Initial Pre Proc Eval Procedure: Operation Date: 09/10/22 07:30 Proposed Procedures p Cystoscopy, Right Ureteroscopy, Right Stone Extraction, Right Ureteral Stent Exchange, Holmium Laser Lithotripsy - Darrell Elmore MD Date/Time: 09/10/22 06:32 Surgeon: Darrell Elmore MD Pre Op Diagnosis: Right Kidney Stone Patient Data Age: 56 Gender: F Height: 1.68 m Weight: 152.6 kg Last Vital Signs Temp 36.0 C L 09/10/22 06:05 Pulse 71 09/10/22 06:05 Resp 16 09/10/22 06:05 BP 133/86 09/10/22 06:05 Pulse Ox 97 09/10/22 06:05 O2 Del Method Room Air 09/10/22 06:05 Allergies Allergy/AdvReac Type Severity Reaction Status Date / Time No Known Allergies Allergy Verified 09/10/22 06:14 Home Medications Medication Instructions Recorded Confirmed Type lisinopril 40 mg tablet 40 mg PO DAILY 05/02/21 09/10/22 History aspirin 81 mg tablet 81 mg PO DAILY 03/30/22 09/10/22 History metoprolol tartrate 100 mg tablet 100 mg PO BID #180 tabs 07/13/22 09/10/22 Rx apixaban 5 mg tablet (Eliquis) 5 mg PO Q12HR #180 tabs 08/07/22 09/10/22 Rx Patient hx anesthesia problems: none Family hx anesthesia problems: none Results Review: All pre-operative results and documents have been reviewed as part of the pre-operative evaluation. [facility] Past Medical History Medical History Allergic rhinitis Atrial fibrillation (~03/2022) Atrial fibrillation status post cardioversion BMI 50.0-59.9, adult Chronic anticoagulation Hyperlipidemia, unspecified Hypertension Kidney stones Obstructive sleep apnea At home sleep study positive for moderate obstructive sleep apnea 07/2022. Patient needs a titrating sleep study. Surgical History Surgical History History of appendectomy 10/2015 History of cardioversion 06/2022 History of section 1984 History of colonoscopy with polypectomy 05/12/2021 History of lithotripsy with ureteral stent placement 10/2015 Family History Family History Mother Family history of heart disease in male family member before age 55 Hypertension History of open heart surgery Sibling Family history of malignant neoplasm of testis Lung cancer Grandparent Acute myocardial infarction Diabetes mellitus Other Cerebrovascular accident Diabetes mellitus Social History Social History Social History: Surrogate medical decision maker: Kelechi Lyon, spouse. Code status: Full code. Smoking status: Never smoker Second hand tobacco smoke exposure: No Alcohol intake: never Drinks per week: 1 Substance use: never Substance use type: does not use Last use: less than one drink a week Lack of Transportation: No Lack of Food: Never True Current Housing: I Have Housing Concerned About Future Housing: No Difficulty Paying Gas/Electric Bills: No Difficulty Paying for Meds: No Currently Unemployed: No Education: Master's Degree or Higher Difficulty w/ Childcare or Family Care: No Living arrangements: with family Additional living arrangements comments: Lives in [place] with spouse of 40 years and 1 son. They have 6 children. Additional occupation/education comments: She served in the [employer] for 1 year but was honorably discharged after becoming . Her served in the [employer] for 20 years. 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 Spiritual care concerns: No Anes - Eval Final PreProcedure Day of Procedure 09/10/22 06:32 Patient weight: morbidly obese Heart: regular rate and rhythm Lungs: clear to auscultation Airway: Mallampati scale class II Neurological: alert and oriented Last oral intake: >/= 8 hours ASA classification: III Emergent: no Anesthetic plan: proceed An
--- NOTE | 2022-09-10 06:42 | WPDHPUPDATE1 ---
History and Physical Update Update Date/Time: 09/10/22 06:42 History and Physical has been reviewed, including an updated exam of the patient. There are NO changes in the patient's condition. Risks, benefits, and alternatives have been discussed and questions answered. Patient agrees to proceed with procedure.
[2022-09-10] MEDS: LACTATED RINGERS 1,000 ML 30 ML IV CONT ×2 (06:50→10:13)
[2022-09-10] MEDS: ceFAZolin 3 GM/D5W 100 ML 100 ML IVPB (07:26)
--- NOTE | 2022-09-10 08:37 | W.PM.PROC2 ---
Procedure Note - Detailed Date of Procedure 09/10/22 Pre-op Diagnosis Right Kidney Stone Post-op Diagnosis Same Procedure Performed Cystoscopy, right ureteroscopy with laser lithotripsy and stone extraction, right ureteral stent replacement Surgeon Darrell Elmore MD Anesthesia General Description of Procedure patient is brought to the operative suite received prepped draped in routine sterile fashion while in dorsal lithotomy position after the uneventful induction of a general anesthetic. Nineteen F rigid cystoscope was used to grasp internal ureteral stent and a 0.035 in glidewire was advanced into the right renal pelvis. Distal ureter was dilated with an 8 F/ 10 F ureteral dilator and a 12 F / 14 F ureteral access sheath was placed. Large stone is impacted upper pole calyx. Using a 200 micron holmium laser fiber extensively fractured the stone using both a dusting and hard stone mode. Was a little difficult to clear small fragments because it was somewhat impacted in this upper pole calyx which prevented free efflux of irrigant and stone fragments. It did appear that we got all sizable fragments fractured. A couple small pieces were extracted with a 1.9 F disposable stone basket and a 4.8 F ureteral stent is replaced.
[2022-09-10] MEDS: ONDANSETRON INJ 4 MG/2 ML VIAL IV PUSH (08:57)
[2022-09-10] MEDS: oxyCODONE HCL (*CRX) 5 MG TAB IR PO (09:32)
[2022-09-10] MEDS: fentaNYL CITRATE INJ (*CRX) 100 MCG/2 ML VIAL 25 MCG IV PUSH ×2 (09:54→09:56)
[2022-09-10] MEDS: KETOROLAC 30 MG/ML VIAL (*BKC) IV PUSH (10:13)
== END 2022-09-10 10:43 | disposition home or self-care (01) ==
PROVIDERS: PCP Family Medicine; Visit Provider Urology
PROC: (CPT 52352; principal; 2022-09-10 07:30)
DX: N20.0 Calculus of kidney (principal); I48.91 Unspecified atrial fibrillation; I10 Essential (primary) hypertension; E78.5 Hyperlipidemia, unspecified; G47.33 Obstructive sleep apnea (adult) (pediatric); Z79.01 Long term (current) use of anticoagulants; Z79.82 Long term (current) use of aspirin; E66.01 Morbid (severe) obesity due to excess calories; Z68.43 Body mass index [BMI] 50.0-59.9, adult
CPT/HCPCS: 52356; 82365; 88300; A9270; C1769; C1894; C2617; J0690; J1100; J1885; J2250; J2405; J2704; J3010; J7120

== ENCOUNTER 2022-09-17 09:57 | Outpatient (CLI) | payer OTHER, SELFPAY ==
--- NOTE | ~2022-09-17 | XR_ITS ---
XR abdomen/kub 1V DATE: 09/17/2022 10:15 INDICATION: Kidney calculus follow-up TECHNIQUE: AP projection, 2 views COMPARISON: 09/10/2022 KUB for stent placement 08/25/2022 KUB FINDINGS: There is an approximately 7.5 x 11 mm calcified calculus and no evidence of multiple much s maller calcified stone fragments At the lower pole the right kidney. The proximal pigtail right internal urinary stent overlies the right renal pelvis, distal pigtail ove rlying the right side of the urinary bladder. No obvious ureteral calcified calculi are noted. No evidence of bowel obstruction. The psoas shadows are intact. No visceromegaly is detected. Include d skeletal structures are unremarkable. IMPRESSION: Right internal urinary stent in expected position 7.5 mm x 11 mm and multiple smaller calcified calculi of the lower pole the right kidney Reviewed, dictated and finalized at Location A. Reviewed, dictated and finalized at location L. IMPRESSION: Right internal urinary stent in expected position 7.5 mm x 11 mm and multiple smaller calcified calculi of the lower pole the rig ht kidney
== END 2022-09-17 09:58 | disposition home or self-care (01) ==
LOC: ANHIMG 10:00
PROVIDERS: PCP Family Medicine; Visit Provider Urology
DX: N20.0 Calculus of kidney (principal)
CPT/HCPCS: 74018

== ENCOUNTER → 2022-10-19 13:38 | Outpatient (CLI) | payer OTHER, SELFPAY ==
--- NOTE | ~2022-10-19 | US_ITS ---
EXAMINATION: US renal BI DATE: 10/19/2022 13:55 INDICATION: Calculus of the kidney TECHNIQUE: Multiple grayscale and Doppler ultrasound images of the kidneys were obtained. COMPARISON: CT, 08/06/2022 FINDINGS: The right kidney measures 10.7 x 5.4 x 5.2 cm. There is a 1.8 cm hyperechoic area projectin g in the right kidney. The left kidney measures 12.7 x 6.1 x 5 cm. The kidneys demonstrate normal par enchymal echogenicity. There is no hydronephrosis. The bladder is normal. IMPRESSION: 1. 1.8 cm stone of the right kidney. No hydronephrosis. Reviewed, dictated and finalized at location B.
== END ==
PROVIDERS: PCP Family Medicine; Visit Provider Urology
DX: N20.0 Calculus of kidney (principal)
CPT/HCPCS: 76775

== ENCOUNTER 2023-07-01 01:28 | Day surgery (SDC) | payer OTHER, SELFPAY ==
[2023-06-21 08:26] VITALS: BMI 55.5
--- NOTE | 2023-06-21 08:31 | PC.NURSE ---
Addendum entered by Audelia Hawknis RN 06/25/23 15:19: PT TO ARRIVE AT 0830 ON 07/01/23 FOR SURGERY AT 1030. Original Note: Report to the Outpatient Waiting Room, entrance under the green pavilion located off [facility], at time 1100 on date 06/24/23. Planned Procedure Time: 1300. Time changes happen often and if your time is changed the preop area will call you the afternoon before. - You and your visitor will be asked to self-screen and do not enter if you have any COVID symptoms. - A mask is optional within the hospital at this time. Patients may have clear liquids (water, carbonated beverages, clear teas, apple juice) until 3 hours prior to surgery with a maximum of 20 ounces. - No food from midnight until time of surgery Take the following medications with a SIP of water the morning of surgery: METOPROLOL DO NOT STOP ANY OF YOUR OTHER PRESCRIPTION MEDICATIONS PRIOR TO SURGERY ?EXCEPT THE FOLLOWING Medications to discontinue per physician: ELIQUIS Date to take last dose: PER DR. LINCOLN Please no make-up, nail citizen of [place], hairspray, perfume, deodorant, or body powder the day of surgery. No jewelry (including any body piercings) or valuables the day of surgery, leave them at home. Please take a shower or bath the night before, or the morning of, surgery with an antibacterial soap. Wear comfortable, loose fitting clothing. - Jewelry must be removed prior to entering the operating room. Rings and piercings that are not removed may be cut off. - The hospital will not accept responsibility for valuables. - Please leave all valuables, including medications, at home the day of surgery. If you are going home after surgery, a licensed car pick up driver must drive you home. - NO public transportation without another adult if you receive anesthesia. - We recommend that an adult stay with you for 24 hours following discharge. - We also recommend that you do not drive, make important decision, drink alcoholic beverages, or take any drugs that were not prescribed by your health care provider for at least 24 hours after your discharge time. Follow any additional instructions given to you from your surgeon. If you or anyone in your household have experienced Covid symptoms in the past week, please notify your surgeon or the nurse liaison at the phone number below for possible testing. Telephone instructions given to PT - REFUGIO SKY and asked if any additional questions and then verbalized understanding. Patient advised to call surgeon office or pre surgery nurse liaison [phone] if any additional questions.
--- NOTE | 2023-06-23 10:46 | WPDANESEPPF ---
Anes - Initial Pre Proc Eval Procedure: Operation Date: 06/24/23 13:00 Proposed Procedures p Cystoscopy, Right Ureteroscopy, Right Stone Extraction, Right Retrograde Pyelogram, Right Stent Placement, Possible Holmium Laser Lithotripsy - Darrell Elmore MD Date/Time: 06/23/23 10:46 Surgeon: Darrell Elmore MD Pre Op Diagnosis: Rt Renal Stone Patient Data Age: 57 Gender: F Height: 1.68 m Weight: 156.05 kg Allergies Allergy/AdvReac Type Severity Reaction Status Date / Time No Known Allergies Allergy Verified 06/21/23 08:24 Home Medications Medication Instructions Recorded Confirmed Type lisinopril 40 mg tablet 40 mg PO DAILY 05/02/21 06/21/23 History metoprolol tartrate 100 mg tablet 100 mg PO BID #180 tabs 07/13/22 06/21/23 Rx apixaban 5 mg tablet (Eliquis) 5 mg PO Q12HR #180 tabs 08/07/22 06/21/23 Rx Results Review: All pre-operative results and documents have been reviewed as part of the pre-operative evaluation. [facility] Past Medical History Medical History (Updated 01/21/23 @ 14:08 by LISS Craven) Allergic rhinitis Atrial fibrillation (~03/2022) Chronic anticoagulation Hyperlipidemia, unspecified Hypertension Kidney stones Obstructive sleep apnea At home sleep study positive for moderate obstructive sleep apnea 07/2022. Patient needs a titrating sleep study. Surgical History Surgical History History of appendectomy 10/2015 History of cardioversion 06/2022 History of section 1984 History of colonoscopy with polypectomy 05/12/2021 History of lithotripsy with ureteral stent placement 10/2015 Family History Family History Mother Family history of heart disease in male family member before age 55 Hypertension History of open heart surgery Sibling Family history of malignant neoplasm of testis Lung cancer Grandparent Acute myocardial infarction Diabetes mellitus Other Cerebrovascular accident Diabetes mellitus Social History Social History Social History: Surrogate medical decision maker: Kelechi Lyon, spouse. Code status: Full code. Smoking status: Never smoker Second hand tobacco smoke exposure: No Alcohol intake: current Drinks per week: 1 Substance use: never Substance use type: does not use Last use: less than one drink a week Lack of Transportation: No Lack of Food: Never True Current Housing: I Have Housing Concerned About Future Housing: No Difficulty Paying Gas/Electric Bills: No Difficulty Paying for Meds: No Currently Unemployed: No Education: Master's Degree or Higher Difficulty w/ Childcare or Family Care: No Living arrangements: with family Additional living arrangements comments: Lives in [place] with spouse of 40 years and 1 son. They have 6 children. Additional occupation/education comments: She served in the [employer] for 1 year but was honorably discharged after becoming . Her served in the [employer] for 20 years. 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 Spiritual care concerns: No Anes - Eval Final PreProcedure Day of Procedure 06/23/23 10:46 Patient weight: super morbidly obese Heart: regular rate and rhythm Lungs: clear to auscultation Airway: Mallampati scale class II Neurological: alert and oriented Last oral intake: >/= 8 hours ASA classification: III Emergent: no Anesthetic plan: proceed Anesthesia type and monitoring: general LMA and standard monitoring Results Review: All pre-operative results and documents have been reviewed as part of the pre-operative evaluation. Informed Consent: The patient's anesthetic plan and its attendant risks and benefits were discussed with the patient/family/POA. Questions were solicited and answers provided to the satisfaction o
--- NOTE | 2023-06-24 06:21 | WPDHPUPDATE1 ---
History and Physical Update Update Date/Time: 06/24/23 06:21 History and Physical has been reviewed, including an updated exam of the patient. There are NO changes in the patient's condition. Risks, benefits, and alternatives have been discussed and questions answered. Patient agrees to proceed with procedure.
--- NOTE | 2023-06-25 15:19 | PC.NURSE ---
Pt states no changes in medications or health history since initial interview. New pre-op instructions reviewed with pt. Pt denies further questions at this time.
--- NOTE | ~2023-07-01 | XR_ITS ---
EXAMINATION: XR stent kub - surgery INDICATION: Laser stone extraction and stent placement TECHNIQUE: Five intraoperative fluoroscopic images are submitted for review. Total fluoroscopic time was 21.5 seconds. COMPARISON: None available FINDINGS: Fluoroscopic images demonstrate placement of a right internal ureteral stent in expected po sition. Please refer to procedure note for full details. IMPRESSION: 1. Please refer to procedure note for full details. Reviewed, dictated and finalized at location F.
--- NOTE | 2023-07-01 06:21 | WPDHPUPDATE1 ---
History and Physical Update Update Date/Time: 07/01/23 06:21 History and Physical has been reviewed, including an updated exam of the patient. There are NO changes in the patient's condition. Risks, benefits, and alternatives have been discussed and questions answered. Patient agrees to proceed with procedure.
--- NOTE | 2023-07-01 08:14 | WPDANESEPPF ---
Anes - Initial Pre Proc Eval Procedure: Operation Date: 07/01/23 10:30 Proposed Procedures p Cystoscopy, Right Ureteroscopy, Right Stone Extraction, Right Retrograde Pyelogram, Right Stent Placement, Possible Holmium Laser Lithotripsy - Darrell Elmore MD Date/Time: 07/01/23 08:14 Surgeon: Darrell Elmore MD Pre Op Diagnosis: Rt Renal Stone Patient Data Age: 57 Gender: F Height: 1.68 m Weight: 156.05 kg Allergies Allergy/AdvReac Type Severity Reaction Status Date / Time No Known Allergies Allergy Verified 06/21/23 08:24 Home Medications Medication Instructions Recorded Confirmed Type lisinopril 40 mg tablet 40 mg PO DAILY 05/02/21 06/21/23 History metoprolol tartrate 100 mg tablet 100 mg PO BID #180 tabs 07/13/22 06/21/23 Rx apixaban 5 mg tablet (Eliquis) 5 mg PO Q12HR #180 tabs 08/07/22 06/21/23 Rx Patient hx anesthesia problems: none Family hx anesthesia problems: none Results Review: All pre-operative results and documents have been reviewed as part of the pre-operative evaluation. [facility] Past Medical History Medical History Allergic rhinitis Atrial fibrillation (~03/2022) Chronic anticoagulation Hyperlipidemia, unspecified Hypertension Kidney stones Obstructive sleep apnea At home sleep study positive for moderate obstructive sleep apnea 07/2022. Patient needs a titrating sleep study. Surgical History Surgical History History of appendectomy 10/2015 History of cardioversion 06/2022 History of section 1984 History of colonoscopy with polypectomy 05/12/2021 History of lithotripsy with ureteral stent placement 10/2015 Family History Family History Mother Family history of heart disease in male family member before age 55 Hypertension History of open heart surgery Sibling Family history of malignant neoplasm of testis Lung cancer Grandparent Acute myocardial infarction Diabetes mellitus Other Cerebrovascular accident Diabetes mellitus Social History Social History Social History: Surrogate medical decision maker: Kelechi Fourqurean, spouse. Code status: Full code. Smoking status: Never smoker Second hand tobacco smoke exposure: No Alcohol intake: current Drinks per week: 1 Substance use: never Substance use type: does not use Last use: less than one drink a week Lack of Transportation: No Lack of Food: Never True Current Housing: I Have Housing Concerned About Future Housing: No Difficulty Paying Gas/Electric Bills: No Difficulty Paying for Meds: No Currently Unemployed: No Education: Master's Degree or Higher Difficulty w/ Childcare or Family Care: No Living arrangements: with family Additional living arrangements comments: Lives in [place] with spouse of 40 years and 1 son. They have 6 children. Additional occupation/education comments: She served in the [employer] for 1 year but was honorably discharged after becoming . Her served in the [employer] for 20 years. 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 Spiritual care concerns: No Anes - Eval Final PreProcedure Day of Procedure 07/01/23 08:14 Patient weight: super morbidly obese Heart: regular rate and rhythm Lungs: clear to auscultation Airway: Mallampati scale class II Neurological: alert and oriented Last oral intake: >/= 8 hours ASA classification: III Emergent: no Anesthetic plan: proceed Anesthesia type and monitoring: general LMA and standard monitoring Results Review: All pre-operative results and documents have been reviewed as part of the pre-operative evaluation. Informed Consent: The patient's anesthetic plan and its attendant risks and benefits were discussed with the patient/fami
[2023-07-01 08:57] VITALS: BP 147/82; PULSE 57; RESP 16; TEMP 36.1; O2SAT 100; BMI 54.7
[2023-07-01] MEDS: LACTATED RINGERS 1,000 ML 30 ML IV CONT (09:02)
[2023-07-01] MEDS: ceFAZolin 3 GM/D5W 100 ML 100 ML IVPB (09:27)
[2023-07-01] MEDS: LIDOCAINE HCL 2% GEL UROJET 10 ML PKG MUCOUS MEM (09:54)
[2023-07-01 10:15] VITALS: BP 145/94; PULSE 72; RESP 18; TEMP 36.2; O2SAT 100
--- NOTE | 2023-07-01 10:24 | W.PM.PROC2 ---
Procedure Note - Detailed Date of Procedure 07/01/23 Pre-op Diagnosis Rt Renal Stone Post-op Diagnosis Same Procedure Performed Cystoscopy, right ureteroscopy with laser lithotripsy, stone extraction and stent placement Surgeon Darrell Elmore MD Anesthesia General Description of Procedure Patient brought to the op suite where she is prepped and draped in routine sterile fashion while in dorsal lithotomy position after the uneventful induction of a general anesthetic. Cystoscopy was undertaken with a 19 F rigid cystoscope. Bladder neck urethra and bladder endoscopically normal. There was no intravesical foreign body or neoplasm. 0.035 in glidewire was advanced in the right renal pelvis and the distal ureter was dilated with an 8 F 10 F dilator. The safety wire was placed and a 11 F/ 13 F ureteral access sheath was easily positioned in the right ureter. right ureteroscopy was undertaken with a 7.5 F flexible ureteral scope. The 11 mm stone is in a midpole calyx. Using a dusting technique it is fractured and a tiny pieces, all estimated to be less than 3 mm. The larger fragments are removed with ease using a 1.9 F disposable stone basket. A 4.8 F variable length ureteral stent is appropriately positioned in all scopes and wires were removed. Patient was taken recovery room good condition. Drains Yes Pathology Yes Complications No immediate complications Condition Stable Disposition PACU
[2023-07-01 10:30] VITALS: BP 146/94; PULSE 55; RESP 12; O2SAT 100
[2023-07-01 10:45] VITALS: BP 140/82; PULSE 56; RESP 12; O2SAT 98
[2023-07-01 10:53] VITALS: BP 137/87; PULSE 63
[2023-07-01 11:23] VITALS: BP 122/75; PULSE 47
== END 2023-07-01 11:25 | disposition home or self-care (01) ==
PROVIDERS: PCP Family Medicine; Visit Provider Urology
PROC: (CPT 52352; principal; 2023-07-01 10:30)
DX: N20.0 Calculus of kidney (principal); I10 Essential (primary) hypertension; E78.5 Hyperlipidemia, unspecified; G47.33 Obstructive sleep apnea (adult) (pediatric); E66.01 Morbid (severe) obesity due to excess calories; Z68.43 Body mass index [BMI] 50.0-59.9, adult; Z79.01 Long term (current) use of anticoagulants; Z98.890 Other specified postprocedural states; Z96.0 Presence of urogenital implants; Z87.442 Personal history of urinary calculi; Z86.79 Personal history of other diseases of the circulatory system; Z80.43 Family history of malignant neoplasm of testis; Z82.49 Family history of ischemic heart disease and other diseases of the circulatory system; Z80.1 Family history of malignant neoplasm of trachea, bronchus and lung
CPT/HCPCS: 52356; 82365; 88300; C1769; C1894; C2617; J0461; J0690; J1100; J2405; J2704; J3010; J7120; Q9966

== ENCOUNTER 2023-10-20 15:27 | Outpatient (CLI) | payer OTHER, SELFPAY ==
--- NOTE | ~2023-10-20 | MM_ITS ---
EXAMINATION: MM screening kirk BI w dov HISTORY: Screening TECHNIQUE: Craniocaudal and mediolateral oblique 3-D tomosynthesis images were obtained and synthetic 2-D images were generated. CAD analysis was submitted and interpreted. COMPARISON: Comparison to multiple prior studies sequentially, with oldest reviewed study dated 01/11. BREAST PARENCHYMAL COMPOSITION: Not dense: There are scattered areas of fibroglandular density. FINDINGS: There is no evidence of suspicious mass, calcification, or architectural distortion to sugg est malignancy in either breast. There has been no suspicious interval change. IMPRESSION: 1. No mammographic evidence of malignancy. 2. Recommend routine screening mammography in one year. BI-RADS Category 1: Negative Reviewed, dictated and finalized at location B.
== END 2023-10-20 15:28 | disposition home or self-care (01) ==
LOC: ANHIMG 15:30
PROVIDERS: PCP Family Medicine; Visit Provider Family Medicine
DX: Z12.31 Encounter for screening mammogram for malignant neoplasm of breast (principal)
CPT/HCPCS: 77063; 77067

== ENCOUNTER 2023-11-22 12:48 | Outpatient (CLI) | payer OTHER, SELFPAY ==
--- NOTE | ~2023-11-22 | XR_ITS ---
XR abdomen/kub 1V Ordering provider: Darrell Elmore MD History: . left ureteral stone . Comparison: September 17, 2022 FINDINGS: BOWEL: Nonobstructive bowel gas pattern. ORGANOMEGALY: None. SIGNIFICANT PATHOLOGIC CALCIFICATIONS: Small calcific area seen opposite the left transverse process of L1 most likely upper ureteric stone. OTHER: No free air is seen under the diaphragm. IMPRESSION: NO ACUTE ABDOMINAL FINDINGS. Highly suggestive left upper ureteric stone. CT evaluation is advised. Reviewed, dictated and finalized at location A.
== END 2023-11-22 12:49 | disposition home or self-care (01) ==
LOC: ANHIMG 12:51
PROVIDERS: PCP Family Medicine; Visit Provider Urology
DX: N20.1 Calculus of ureter (principal)
CPT/HCPCS: 74018

== ENCOUNTER 2023-11-30 12:56 | Outpatient (CLI) | payer OTHER, SELFPAY ==
--- NOTE | ~2023-11-30 | CT_ITS ---
EXAMINATION: CT abdomen pelvis wo con DATE: 11/30/2023 13:19 INDICATION: Left ureteral stone. TECHNIQUE: Computed tomography (CT) of the abdomen and pelvis was performed without intravenous contr ast. Automated exposure control and iterative reconstruction technique were employed. The dose-length product was 1194.85 mGy-cm. COMPARISON: CT abdomen and pelvis 08/06/2022 FINDINGS: The visualized portions of the lung bases are clear without pneumonia or pleural effusion. The heart is normal. No pericardial effusion. There are changes of gastric sleeve procedure. The live r, gallbladder, spleen, pancreas, and adrenal glands are normal. There is cortical thinning of the ki dneys. There is a 2.5 cm cyst in right kidney. There is no urolithiasis. There are changes of appende ctomy. There are no dilated loops of bowel. There are no pathologically enlarged lymph nodes. There i s no free intraperitoneal fluid. There is mild thoracic and lumbar spondylosis. IMPRESSION: 1. No urolithiasis. Reviewed, dictated and finalized at location A. IMPRESSION: 1. No urolithiasis.
== END 2023-11-30 12:57 | disposition home or self-care (01) ==
PROVIDERS: PCP Family Medicine; Visit Provider Urology
DX: N20.1 Calculus of ureter (principal)
CPT/HCPCS: 74176

== ENCOUNTER 2024-01-08 10:34 | Outpatient (CLI) | payer OTHER, SELFPAY ==
[2024-01-08 11:01] LABS: Alanine Aminotransferase 13 U/L (6-35); Albumin Level 4.1 g/dL (3.5-5.1); Alkaline Phosphatase 73 U/L (38-126); Anion Gap 5 mmol/L (4-12); Aspartate Amino Transferase 19 U/L (14-36); Bilirubin,Total 0.6 mg/dL (0.2-1.3); Blood Urea Nitrogen 15 mg/dL (7-17); Calcium 9.5 mg/dL (8.4-10.2); Carbon Dioxide 30 mmol/L (22-30); Chloride 106 mmol/L (98-107); Cholesterol 220 mg/dL (0-200); Estimated Glomerular Filt Rate > 60; Glucose 99 mg/dL (65-110); HDL Direct 50 mg/dL; Potassium 4.6 mmol/L (3.4-5.0); Sodium 141 mmol/L (137-145); Triglycerides 123 mg/dL (<150)
[2024-01-08 11:12] LABS: LDL Cholesterol Direct 128 mg/dL
== END 2024-01-08 10:35 | disposition home or self-care (01) ==
LOC: ANHLAB 10:36
PROVIDERS: PCP Family Medicine; Visit Provider Family Medicine
DX: E78.2 Mixed hyperlipidemia (principal); I10 Essential (primary) hypertension
CPT/HCPCS: 36415; 80053; 80061

== ENCOUNTER 2024-09-09 08:24 | Outpatient (CLI) | payer OTHER, SELFPAY ==
--- OUTSIDE RECORDS SUMMARY | 2024-09-09 08:30 | XMS_ITS | Clinical Summary ---
Author Organization [facility] [address] Address [address] [place] [address] Care Team Providers Care Matcher Offbearer Name Role Phone Oswaldo Raygoza MD Primary Care Provider [phone] Ashley James PT Unavailable Unavailabl e Allergies No known active allergies Medications multivit-min/iron/ folic acid/K (BARIATRIC MULTIVITAMINS ORAL) Take 1 tablet/caps ule by mouth daily Active Eliquis 5 mg tabletIndications: PAF (paroxysmal atrial fibrillation) (HCC) Take 1 tablet (5 mg total) by mouth 2 (two) times a day 180 tablet 3 4 Active metoprolol (LOPRESSOR) 100 mg tabletIndications: PAF (paroxysmal atrial fibrillation) (HCC) Take 1 tablet (100 mg total) by mouth 2 (two) times a day 180 tablet 3 4 Active lisinopriL (PRINIVIL,ZESTRIL) 10 mg tablet Take 1 tablet (10 mg total) by mouth daily 90 tablet 3 4 02/14/20 25 Active rosuvastatin (CRESTOR) 5 mg tablet Take 1 tablet (5 mg total) by mouth daily 90 tablet 3 5 08/15/19 26 Active Active Problems Problem Noted Date Diagnosed Date Mixed hyperlipidemia 08/14/2024 Severe obesity 08/14/2024 Body mass index (BMI) 45.0-49.9, adult 5 Morbid obesity 10/05/2023 Heartburn 06/29/2023 CHIDI (obstructive sleep apnea) 06/08/2022 Other thrombophilia 06/08/2022 PAF (paroxysmal atrial fibrillation) 04/27/2022 BMI 50.0-59.9, adult 04/27/2022 Assessment & Plan (12/16/2023 9:03 AM CDT): Continue small frequent meals limiting carbohydrates and preferentially taking in protein. Continue to attend the monthly support group meetings. Increased activity as tolerates. Continue calcium, multivitamin vitamin-D. We will see her back in 3 months. She will call sooner if anything changes Assessment & Plan (11/18/2023 10:29 AM CDT): Continue to advance diet as laid out in post bariatric handout. Avoid heavy lifting for another 4 weeks. Bowel regimen as needed to avoid straining. Continue multivitamin, calcium and vitamin-D. We will see the patient back in 4 weeks. She will call sooner if any issues arise Assessment & Plan (06/01/2023 8:39 AM AERONAUTICAL ENGINEER): She will continue to work on portion size and carbohydrate control. As she starts losing a little bit of weight hopefully this will also offload some knee pain and back pain to help her able to start exercising as well. Continue to work with the dietitian. We will see her back next month. Assessment & Plan (05/04/2023 9:08 AM AERONAUTICAL ENGINEER): Given their past success the patient would be a good candidate for weight loss surgery. We have gone over options such as the bypass and sleeve gastrectomy. We have also discussed risks and benefits such as blood clots, staple line leak as well as new or worsening reflux symptoms. They are in understanding. During this time will have them seen by the dietitian and psych. As we get closer to the time of surgery we will set him up for an EGD to look for hiatal hernia, H pylori or other gastric pathology. We will see them back in 4 weeks. They are in understanding of the plan. We have gone over small frequent meals shooting for a goal calorie intake of around 1600 spread throughout 4-5 meals. We have discussed not eating late at night. We have discussed cardiovascular exercise. Greater than 15 minutes was spent in counseling the patient on diet and exercise with regards to her morbid obesity. Essential hypertension 04/27/2022 Resolved Problems Problem Noted Date Diagnosed Date Resolved Date Snoring 04/27/2022 12/04/2022 Encounters Date Type Department Care Team Description 08/14/2024 9:30 AM CDT Office Visit [facility] [address] [place] [address] Abhishek Meier MD PAF (paroxysmal atrial fibrillation) (HCC) (Primary Dx); Essential hypertension; CHIDI (obstructive sleep apnea); Mixed hyperlipidemia; Severe obesity (HCC); Body mass index (BMI) 45.0-49.9, adult (HCC) from Last 3 Months Surgical History Surgery Date Site/Laterality Comments APPENDECTOMY SECTION COLONOSCOPY W/ POLYPECTOMY NEPHROSTOMY TRACT DILATATION W/ LITHOTRIPSY Right CARDIOVERSION SLEEVE GASTROPLASTY 11/10/2023 Medical History Medical History Date Comments Atrial fibrillation (HCC) Hypertension Sleep apnea Plantar fasciitis, bilateral Kidney stones Family History Medical History Relation Name Comments Colitis Brother No Known Problems Father Hypertension Mother Open heart surgery Mother Cancer Sister Lung cancer Relation Name Status Comments Brother Father Mother Alive Sister Social History Tobacco Use Types Packs/Day Years Used Date Smoking Tobacco: Never Smokeless Tobacco: Never Tobacco Cessation:Counseling Given: Not Answered AUDIT-C Answer Date Recorded Q1: How often do you have a drink containing alcohol? Never 11/18/2023 Q2: How many drinks containi ng alcohol do you have on a typical day when you are drinking? Patient does not drink Frequency of Binge Drinking Not on file 11/2023 Personal Safety Answer Date Recorded Have you ever been in or are you currently in a harmful physical or emotional relationship or is someone making you feel afraid or unsafe? Denies 11/10/2023 Comments No Sex and Gender Information Value Date Recorded Sex Assigned at Not on file Legal Sex Female 11:51 AM AERONAUTICAL ENGINEER Gender Identity Not on file Sexual Orientation Not on file Obstetrics History Last Filed Vital Signs Vital Sign Reading Time Taken Comments Blood Pressure 120/70 08/14/2024 9:25 AM CDT Pulse 67 08/14/2024 9:25 AM CDT Temperature 36.3 C (97.3 F) 12/16/2023 8:37 AM CDT Respiratory Rate 18 12/27/2023 1:48 PM CDT Oxygen Saturation 98% 08/14/2024 9:25 AM CDT Inhaled Oxygen Concentration - - Weight 130.2 kg (287 lb) 08/14/2024 9:25 AM CDT Height 165.1 cm (5' 5) 08/14/2024 9:25 AM CDT Body Mass Index 47.76 08/14/2024 9:25 AM CDT Plan of Treatment Health Maintenance Due Date Last Done Comments Breast Cancer Screening-Mammogram 1965 Cervical Cancer Screening 1965 Colon Cancer Screening-Colonoscopy 1965 Depression Screening 1965 Hepatitis C Screening 1965 Hepatitis B Screening 10/17/1981 Regular Well Visit/Exam 18-64 10/17/1981 DTaP/Tdap/Td Vaccine (2 - Td or Tdap) 07/28/2023 07/27/2013, 10/05/2003 Covid-19 Vaccine ( season) 2023 03/18/2022, 11/13/2021, 03/13/2021, Additional history exists Influenza Vaccine (Season Ended) 2024 12/26/2021, 12/28/2020, 01/27/2020, Additional history exists Zoster Vaccine Completed 05/19/2019, 02/11, 02/22/2019, Additional history exists Pneumococcal vaccine <65 Aged Out No longer eligible based on patient's age to complete this topic Procedures Procedure Name Priority Date/Time Associated Diagnosis Comments POCT LIPID PANEL Routine 08/14/2024 9:50 AM CDT Mixed hyperlipidemia from Last 3 Months Results * (ABNORMAL) POCT lipid panel (08/14/2024 9:50 AM CDT) Cholesterol, POC 246 <200 MG/DL Comment:GLU = 89 HDL, POC 59 >=40 mg/dL Triglycerides, POC 133 <=149 mg/dL LDL Cholesterol POC 160(A) <=129 mg/dL Chol/HDL Ratio, POC 2.7 NONE Non-HDL Cholesterol, POC 187 NONE mg/dL Cholesterol Total, POC 246(A) 30 - 199 mg/dL Capillary blood 08/14/2024 9 :50 AM CDT Abhishek Meier MD POINT OF CARE TEST O RDERABLES Final Result from Last 3 Months Insurance [facility]S [facility]O Address: [address] [address] [place] [address] [facility]S [facility]PPO Address[facility] [id number] [place] [id number] [facility] CLAIMS [facility]/PPO Address: [address] [address] Advance Directives For more information, please contact: [phone] * Full Code (Latest Code Status on File) Date Activated Date Inactivated Comments 11/10/2023 1:31 PM 11/11/2023 4:26 PM * Full Code Date Activated Date Inactivated Comments 07/27/2023 12:07 PM 07/27/2023 5:47 PM * Full Code Date Activated Date Inactivated Comments 07/27/2023 12:07 PM 07/27/2023 12:07 PM Care Teams Matcher Offbearer Relationship Specialty Start Date End Date Oswaldo Raygoza MD [address] [place] [id number] PCP - General Family Medicine 03/30/22 Ashley James, PT Physical Therapist Physical Therapy 05/13/23
--- OUTSIDE RECORDS SUMMARY | 2024-09-09 08:30 | XMS_ITS | Referral Summary ---
Author Organization [facility] [place] [address] [facility] [address] Address [address] [place] [address] Care Team Providers Care Instrument Technician Apprentice Name Role Phone Oswaldo Raygoza MD Primary Care Provider [phone] Ashley James PT Unavailable Unavailabl e Encounters Date Type Department Care Team Description 08/14/2024 9:30 AM CDT Office Visit [facility] Cardiology [address] [place] [address] Abhishek Meier MD PAF (paroxysmal atrial fibrillation) (HCC) (Primary Dx); Essential hypertension; CHIDI (obstructive sleep apnea); Mixed hyperlipidemia; Severe obesity (HCC); Body mass index (BMI) 45.0-49.9, adult (HCC) from Last 3 Months Allergies No known active allergies Medications multivit-min/iron/ [...] 08/14/2024 Body mass index (BMI) 45.0-49.9, adult Morbid obesity 10/05/2023 Heartburn 06/29/2023 CHIDI (obstructive [...] arise Assessment & Plan (06/01/2023 8:39 AM SECURITY SOFTWARE ENGINEER): She will continue to work on portion size and carbohydrate control. As she starts losing a little bit of weight hopefully this will also offload some knee pain and back pain to help her able to start exercising as well. Continue to work with the dietitian. We will see her back next month. Assessment & Plan (05/04/2023 9:08 AM SECURITY SOFTWARE ENGINEER): Given their past success the patient [...] Diagnosed Date Resolved Date Snoring 04/27/2022 12/04/2022 Social History Tobacco Use Types Packs/Day Years [...] on file Legal Sex Female 11:51 AM SECURITY SOFTWARE ENGINEER Gender Identity Not on file Sexual Orientation Not on file Last Filed Vital Signs Vital Sign Reading [...] 08/14/2024 9:25 AM CDT Plan of Treatment Not on file Procedures Procedure Name Priority Date/Time Associated Diagnosis [...] Final Result from Last 3 Months Insurance [facility] H[facility]/PPO Address: [address] [place] [phone] [facility] H[facility]/PPO Address[facility] [address] [place] [phone] [facility] CLAIMS [facility] H[facility]/PPO Address: [address] [address] [place] [address] Advance Directives For more information, please contact: [phone] * Full Code (Latest Code Status on File) Date Activated Date Inactivated Comments 11/10/2023 1:31 PM 11/11/2023 4:26 PM * Full Code Date Activated Date Inactivated Comments 07/27/2023 12:07 PM 07/27/2023 5:47 PM * Full Code Date Activated Date Inactivated Comments 07/27/2023 12:07 PM 07/27/2023 12:07 PM Care Teams Instrument Technician Apprentice Relationship Specialty Start Date End Date Oswaldo Raygoza MD [address] [place] [id number] PCP - General Family Medicine 03/30/22 Ashley James, PT Physical Therapist Physical Therapy 05/13/23
[2024-09-09 08:46] LABS: Hematocrit 42.2 % (37.0-47.0); Hemoglobin 13.1 g/dL (12.0-15.0); Mean Corpuscular Hemoglobin 30.2 pg (26-34); Mean Corpuscular Volume 97.2 fl (80-100); Mean Platelet Volume 11.8 fl (7.4-10.4); Platelet Count Result 241 k/mm3 (150-375); Red Blood Count 4.34 M/mm3 (4.2-5.4); Red Cell Distribution Width 13.2 % (11.5-14.5); White Blood Count 7.5 K/mm3 (4.5-10.0)
[2024-09-09 08:56] LABS: Alanine Aminotransferase 16 U/L (6-35); Albumin Level 4.1 g/dL (3.5-5.1); Alkaline Phosphatase 68 U/L (38-126); Anion Gap 4 mmol/L (4-12); Aspartate Amino Transferase 26 U/L (14-36); Bilirubin,Total 0.5 mg/dL (0.2-1.3); Blood Urea Nitrogen 15 mg/dL (7-17); Calcium 9.2 mg/dL (8.4-10.2); Carbon Dioxide 31 mmol/L (22-30); Chloride 105 mmol/L (98-107); Cholesterol 182 mg/dL (0-200); Estimated Glomerular Filt Rate > 60; Glucose 97 mg/dL (65-110); HDL Direct 64 mg/dL; Potassium 4.3 mmol/L (3.4-5.0); Sodium 140 mmol/L (137-145); Triglycerides 128 mg/dL (<150)
[2024-09-09 09:06] LABS: LDL Cholesterol Direct 78 mg/dL
== END 2024-09-09 08:25 | disposition home or self-care (01) ==
PROVIDERS: PCP Family Medicine
DX: E78.2 Mixed hyperlipidemia (principal); I10 Essential (primary) hypertension
CPT/HCPCS: 36415; 80053; 80061; 85027

== ENCOUNTER 2025-01-11 16:03 | Outpatient (CLI) | payer OTHER, SELFPAY ==
--- NOTE | ~2025-01-11 | XR_ITS ---
EXAMINATION: XR abdomen/kub 1V, 01/11/2025 16:20 CDT HISTORY: HX OF STONES/GEOFF FLANK PAIN COMPARISON: No comparisons available. Technique: 3 view. Findings: Bowel gas pattern unremarkable. No obstruction. Moderate fecal content, no renal calculi definitely identified No acute osseous abnormality. Impression: 1. No acute abnormality. Reviewed, dictated and finalized at location P. Impression: 1. No acute abnormality.
--- NOTE | ~2025-01-11 | XR_ITS ---
EXAMINATION: XR shoulder LT min 2V, 01/11/2025 16:20 CDT HISTORY: M25.512 - Pain in left shoulder COMPARISON: No comparisons available. Findings: No acute fracture or malalignment. No significant degenerative changes. Soft tissues unremarkable. Impression: No acute fracture or malalignment. Reviewed, dictated and finalized at location P. Impression: No acute fracture or malalignment.
--- NOTE | ~2025-01-11 | XR_ITS ---
EXAMINATION: XR ankle RT 2V, 01/11/2025 16:25 CDT HISTORY: MEDIAL R ANKLE PAIN/NO TRAUMA COMPARISON: No comparisons available. Findings: Remote fracture of the distal fibula, no acute fracture identified No significant degenerative changes. Soft tissues unremarkable. Impression: No acute fracture or malalignment. Reviewed, dictated and finalized at location P. Impression: No acute fracture or malalignment.
--- OUTSIDE RECORDS SUMMARY | 2025-01-11 16:07 | XMS_ITS | Clinical Summary ---
Author Organization [facility] Address [address] [place] [id number] Care Team Providers Care Stiff Leg Derrick Operator Name Role Phone Unavailable Primary Care Provider Unavailabl e Social History Tobacco Use Types Packs/Day Years Used Date Smoking Tobacco: Never Assessed Comments Unknown Sex and Gender Information Value Date Recorded Sex Assigned at Not on file Legal Sex Female 5:48 PM CDT Gender Identity Not on file Sexual Orientation Not on file Plan of Treatment Health Maintenance Due Date Last Done Comments Cervical Cancer Screening Pa p Smear (Age 30 to 64) Every 3 Years 1965 Colorectal Cancer Screening Colonoscopy (10 Years) 1963 Annual Physical 10/17/1966 Hepatitis C 10/17/1981 DTaP, Tdap and Td Vaccines ( 1 - Tdap) 10/17/1982 Cervical Cancer Screening Pa p with HPV Testing (Age 30 to 64) Every 5 Years 10/17/1993 Cervical Cancer Screening with HPV 10/17/1993 Mammogram Screening 2003 Pneumococcal Vaccine: 50+ Ye ars (1 of 1 - PCV) 10/17/2013 Zoster Vaccines (1 of 2) 10/17/2013 COVID-19 Vaccine ( - 2023-2 5 season) 2024 RSV Immunization or 60+ Years (1 - 1-dose 75+ series) 10/17/2038 Meningococcal B Vaccine Aged Out No l onger eligible based on patient's age to complete this topic Meningococcal Vaccine Aged Out No carmen lacy eligible based on patient's age to complete this topic RSV Immunizations Under 20 Months Aged Out No longer eligible based on patient's age to complete this topic
--- OUTSIDE RECORDS SUMMARY | 2025-01-11 16:07 | XMS_ITS | Clinical Summary ---
Author Organization [facility] [place] [address] Address [address] [place] [address] Care Team Providers Care Coffee Farmer Name Role Phone Oswaldo Raygoza MD Primary Care Provider [phone] Ashley James PT Unavailable Unavailabl e Allergies No known active allergies Medications multivit-min/iron/ folic acid/K (BARIATRIC MULTIVITAMINS ORAL) Take 1 tablet/caps ule by mouth daily Active Eliquis 5 mg tabletIndications: PAF (paroxysmal atrial fibrillation) Take 1 tablet (5 mg total) by mouth 2 (two) times a day 180 tablet 3 4 Active metoprolol (LOPRESSOR) 100 mg tabletIndications: PAF (paroxysmal atrial fibrillation) Take 1 tablet (100 mg total) by [...] arise Assessment & Plan (06/01/2023 8:39 AM APPAREL EMBROIDERY DIGITIZER): She will continue to work on portion size and carbohydrate control. As she starts losing a little bit of weight hopefully this will also offload some knee pain and back pain to help her able to start exercising as well. Continue to work with the dietitian. We will see her back next month. Assessment & Plan (05/04/2023 9:08 AM APPAREL EMBROIDERY DIGITIZER): Given their past success the patient would [...] Encounters Date Type Department Care Team Description 12/27/2024 Telephone [facility] Cardiology [address] [place] [address] Abhishek Meier MD RSV and Flu vaccine from Last 3 Months Surgical History Surgery [...] often do you have a drink containing alc ohol? Never 11/18/2023 Average Number of Drinks Not on file 024 Frequency of Binge Drinking Not on file 11/2023 Personal Safety Answer Date Recorded Have you ever been in or are you currently in a harmful physical or emotional relationship or is someone making you feel afraid or unsafe? Denies 11/10/2023 Comments No Sex and Gender Information Value Date Recorded Sex Assigned at Not on file Legal Sex Female 11:51 AM APPAREL EMBROIDERY DIGITIZER Gender Identity Not on file Sexual Orientation Not on file Obstetrics History Last Filed Vital Signs Vital Sign Reading Time Taken Comments Blood Pressure 130/70 09/26/2024 9:11 AM CDT Pulse 56 09/26/2024 9:11 AM CDT Temperature 36.3 C (97.3 F) 12/16/2023 8:37 AM CDT Respiratory Rate 18 12/27/2023 1:48 PM CDT Oxygen Saturation 94% 09/26/2024 9:11 AM CDT Inhaled Oxygen Concentration - - Weight 132.5 kg (292 lb) 09/26/2024 9:11 AM CDT Height 165.1 cm (5' 5) 09/26/2024 9:11 AM CDT Body Mass Index 48.59 09/26/2024 9:11 AM CDT Plan of Treatment Health Maintenance Due Date Last Done Comments Breast Cancer Screening-Mammogram 1965 Cervical Cancer Screening 1963 Colon Cancer Screening-Colonoscopy 1963 Depression Screening 1963 Hepatitis C Screening 1963 DTaP/Tdap/Td Vaccine (1 - Tdap) 10/17/1974 Hepatitis B Screening 10/17/1981 Regular Well Visit/Exam 18-64 10/17/1981 Zoster Vaccine (2 of 2) 04/19/2019 02/22/2019 Covid-19 Vaccine ( season) 2024 03/18/2022, 11/13/2021, 03/13/2021, Additional history exists Influenza Vaccine (#1) 2024 2, 12/28/2020, 01/27/2020, Additional history exists Pneumococcal vaccine <65 Aged Out No longer eligible based on patient's age to complete this topic Insurance [facility] [place] [address] [facility] [place] [address] [facility] Advance Directives For more information, please contact: [phone] * Full Code (Latest Code Status on File) Date Activated Date Inactivated Comments 11/10/2023 1:31 PM 11/11/2023 4:26 PM * Full Code Date Activated Date Inactivated Comments 07/27/2023 12:07 PM 07/27/2023 5:47 PM * Full Code Date Activated Date Inactivated Comments 07/27/2023 12:07 PM 07/27/2023 12:07 PM Care Teams Coffee Farmer Relationship Specialty Start Date End Date Oswaldo Raygoza MD [address] [place] [id number] PCP - General Family Medicine 03/30/22 Ashley James, PT Physical Therapist Physical Therapy 05/13/23
== END 2025-01-11 16:04 | disposition home or self-care (01) ==
PROVIDERS: PCP Family Medicine
DX: M25.512 Pain in left shoulder (principal); M25.571 Pain in right ankle and joints of right foot; R10.A3 Flank pain, bilateral
CPT/HCPCS: 73030; 73600; 74018